=== PATIENT | female | born 1940 | race Caucasian/White ===

== ENCOUNTER 2017-11-13 16:51 | Inpatient (IN) | payer BC, MEDICARE ==
[2017-11-13] MEDS ORDERED: DILTIAZEM DRIP BOLUS FROM BAG 1 MG SOLN IV ONE (17:04)
[2017-11-13] MEDS ORDERED: SODIUM CHLORIDE 0.9% 1,000 ML IV STA ×2 (17:04)
--- NOTE | 2017-11-13 17:14 | ED ---
General Adult HPI - General Chief complaint: Syncope Stated complaint: SYNCOPE Time Seen by Provider: 11/13/17 16:55 Source: patient, EMS, RN notes reviewed, old records reviewed Mode of arrival: EMS Limitations: no limitations - History of Present Illness Initial comments: This is a 68-year-old female the ER for evasive syncopal event weakness. Not feeling well. Patient states he feels like her heart is racing shortness of breath. Patient is a poor historian denies history of heart disease. MD Complaint: A she is - Related Data Home Medications Medication Instructions Recorded Confirmed Aspirin EC [Ecotrin Low Dose] 81 mg PO DAILY 11/13/17 11/13/17 Biotin 5 mg PO DAILY 11/13/17 11/13/17 Cholecalciferol [Vitamin D3] 5,000 unit PO DAILY 11/13/17 11/13/17 Citalopram Hydrobromide [CeleXA] 20 mg PO DAILY 11/13/17 11/13/17 Cyanocobalamin (Vitamin B-12) 1,000 mcg PO DAILY 11/13/17 11/13/17 [Vitamin B-12] Donepezil HCl [Aricept] 10 mg PO BID 11/13/17 11/13/17 Fluticasone Nasal [place] [Flonase 1 spray EA NOSTRIL DAILY 11/13/17 11/13/17 Nasal [place]] Ginkgo Biloba [place] Extract [Ginkgo] 120 mg PO DAILY 11/13/17 11/13/17 Losartan Potassium 100 mg PO DAILY 11/13/17 11/13/17 Memantine [Namenda] 10 mg PO BID 11/13/17 11/13/17 Puritan's Pride Es [place]-3 Fish 1 tab PO DAILY 11/13/17 11/13/17 Oil 1500/450mg amLODIPine [Norvasc] 5 mg PO DAILY 11/13/17 11/13/17 Allergies Allergy/AdvReac Type Severity Reaction Status Date / Time No Known Allergies Allergy Verified 11/13/17 18:25 Review of Systems ROS Statement: Those systems with pertinent positive or pertinent negative responses have been documented in the HPI. ROS Other: All systems not noted in ROS Statement are negative. Past Medical History Past Medical History: Dementia History of Any Multi-Drug Resistant Organisms: None Reported Past Surgical History: No Surgical Hx Reported Past Psychological History: No Psychological Hx Reported Smoking Status: Current some day smoker Past Alcohol Use History: None Reported General Exam Limitations: no limitations General appearance: alert, in no apparent distress, anxious Head exam: Present: atraumatic, normocephalic, normal inspection Eye exam: Present: normal appearance, PERRL, EOMI. Absent: scleral icterus, conjunctival injection, periorbital swelling ENT exam: Present: normal exam, mucous membranes moist Neck exam: Present: normal inspection. Absent: tenderness, meningismus, lymphadenopathy Respiratory exam: Present: normal lung sounds bilaterally. Absent: respiratory distress, wheezes, rales, rhonchi, stridor Cardiovascular Exam: Present: tachycardia, irregular rhythm, normal heart sounds. Absent: systolic murmur, diastolic murmur, rubs, gallop, clicks GI/Abdominal exam: Present: soft, normal bowel sounds. Absent: distended, tenderness, guarding, rebound, rigid Extremities exam: Present: normal inspection, full ROM, normal capillary refill. Absent: tenderness, pedal edema, joint swelling, calf tenderness Back exam: Present: normal inspection Neurological exam: Present: alert, oriented X3, CN II-XII intact Psychiatric exam: Present: normal affect, normal mood Skin exam: Present: warm, dry, intact, normal color. Absent: rash Course Vital Signs 11/13/17 11/13/17 16:54 17:56 Temperature 99.0 F Pulse Rate 137 H 116 H Respiratory 20 18 Rate Blood Pressure 115/56 125/72 O2 Sat by Pulse 98 93 L Oximetry - Reevaluation(s) Reevaluation #1: 11/13/17 18:49 Patient has and denies any chest pain. Patient's heart rate is much improved with rate control, no symptoms or signs of syncope here in the ER EKG Findings - EKG Comments: EKG Findings:: EKG shows A. fib with RVR rate of 140, QRS 80, QTC 494 - EKG Results: EKG: interpreted by LEATHA Medical Decision Making - Medical Decision Making 76 female the ER for evaluation positive A. fib with RVR, positive and STEMI, patient to be admitted for evaluation by cardiology, anticoagulation and heart rate control - Lab Data Result diagrams: 11/13/17 16:58 11/13/17 16:58 Lab Results 11/13/17 11/13/17 11/13/17 Range/Units 16:58 16:58 16:58 WBC 11.0 H (3.8-10.6) k/uL RBC 4.23 (3.80-5.40) m/uL Hgb 12.5 (11.4-16.0) gm/dL Hct 38.8 (34.0-46.0) % MCV 91.7 (80.0-100.0) fL MCH 29.6 (25.0-35.0) pg MCHC 32.2 (31.0-37.0) g/dL RDW 14.1 (11.5-15.5) % Plt Count 147 L (150-450) k/uL Neutrophils % 85 % Lymphocytes % 6 % Monocytes % 7 % Eosinophils % 0 % Basophils % 0 % Neutrophils # 9.3 H (1.3-7.7) k/uL Lymphocytes # 0.6 L (1.0-4.8) k/uL Monocytes # 0.7 (0-1.0) k/uL Eosinophils # 0.0 (0-0.7) k/uL Basophils # 0.0 (0-0.2) k/uL PT (9.0-12.0) sec INR (<1.2) APTT (22.0-30.0) sec Sodium 136 L (137-145) mmol/L Potassium 3.8 (3.5-5.1) mmol/L Chloride 103 (98-107) mmol/L Carbon Dioxide 22 (22-30) mmol/L Anion Gap 11 mmol/L BUN 35 H (7-17) mg/dL Creatinine 1.54 H (0.52-1.04) mg/dL Est GFR (CKD-EPI)AfAm 37 (>60 ml/min/1.73 sqM) Est GFR (CKD-EPI)NonAf 32 (>60 ml/min/1.73 sqM) Glucose 114 H (74-99) mg/dL Calcium 8.6 (8.4-10.2) mg/dL Phosphorus 4.7 H (2.5-4.5) mg/dL Magnesium 1.9 (1.6-2.3) mg/dL Total Bilirubin 0.5 (0.2-1.3) mg/dL AST 32 (14-36) U/L ALT 30 (9-52) U/L Alkaline Phosphatase 61 (38-126) U/L Total Creatine Kinase 260 H (30-135) U/L CK-MB (CK-2) 3.9 H* (0.0-2.4) ng/mL CK-MB (CK-2) Rel Index 1.5 Troponin I 0.197 H* (0.000-0.034) ng/mL Total Protein 5.8 L (6.3-8.2) g/dL Albumin 3.4 L (3.5-5.0) g/dL TSH 1.320 (0.465-4.680) mIU/L 11/13/17 Range/Units 16:58 WBC (3.8-10.6) k/uL RBC (3.80-5.40) m/uL Hgb (11.4-16.0) gm/dL Hct (34.0-46.0) % MCV (80.0-100.0) fL MCH (25.0-35.0) pg MCHC (31.0-37.0) g/dL RDW (11.5-15.5) % Plt Count (150-450) k/uL Neutrophils % % Lymphocytes % % Monocytes % % Eosinophils % % Basophils % % Neutrophils # (1.3-7.7) k/uL Lymphocytes # (1.0-4.8) k/uL Monocytes # (0-1.0) k/uL Eosinophils # (0-0.7) k/uL Basophils # (0-0.2) k/uL PT 10.5 (9.0-12.0) sec INR 1.1 (<1.2) APTT 23.6 (22.0-30.0) sec Sodium (137-145) mmol/L Potassium (3.5-5.1) mmol/L Chloride (98-107) mmol/L Carbon Dioxide (22-30) mmol/L Anion Gap mmol/L BUN (7-17) mg/dL Creatinine (0.52-1.04) mg/dL Est GFR (CKD-EPI)AfAm (>60 ml/min/1.73 sqM) Est GFR (CKD-EPI)NonAf (>60 ml/min/1.73 sqM) Glucose (74-99) mg/dL Calcium (8.4-10.2) mg/dL Phosphorus (2.5-4.5) mg/dL Magnesium (1.6-2.3) mg/dL Total Bilirubin (0.2-1.3) mg/dL AST (14-36) U/L ALT (9-52) U/L Alkaline Phosphatase (38-126) U/L Total Creatine Kinase (30-135) U/L CK-MB (CK-2) (0.0-2.4) ng/mL CK-MB (CK-2) Rel Index Troponin I (0.000-0.034) ng/mL Total Protein (6.3-8.2) g/dL Albumin (3.5-5.0) g/dL TSH (0.465-4.680) mIU/L - Radiology Data Radiology results: report reviewed (Chest x-rays negative), image reviewed Critical Care Time Critical Care Time: Yes Total Critical Care Time: 31 Disposition Clinical Impression: Atrial fibrillation with RVR, NSTEMI (non-ST elevated myocardial infarction), Near syncope Disposition: ADMITTED IP TO THIS HOSP Condition: Serious Is patient prescribed a controlled substance at d/c from ED?: No Referrals: Eliot Teresa DO [Primary Care Provider] - 1-2 days
[2017-11-13] MEDS: DILTIAZEM 50 MG in SODIUM CHLORIDE 0.9% 40 ML IV SCH (17:28)
[2017-11-13 17:44] LABS: Basophils % (A) 0 %; Eosinophils % (A) 0 %; HCT 38.8 % (34.0-46.0); HGB 12.5 gm/dL (11.4-16.0); Lymphocytes # (A) 0.6 k/uL (1.0-4.8); Lymphocytes % (A) 6 %; MCH 29.6 pg (25.0-35.0); MCHC 32.2 g/dL (31.0-37.0); MCV 91.7 fL (80.0-100.0); Monocytes # (A) 0.7 k/uL (0-1.0); Monocytes % (A) 7 %; Neutrophils # (A) 9.3 k/uL (1.3-7.7); Neutrophils % (A) 85 %; Platelet Count 147 k/uL (150-450); RBC 4.23 m/uL (3.80-5.40); RDW 14.1 % (11.5-15.5)
[2017-11-13 17:48] LABS: INR 1.1 (<1.2); Partial Thromboplastin Time 23.6 sec (22.0-30.0); Prothrombin Time 10.5 sec (9.0-12.0)
[2017-11-13 17:55] LABS: Albumin 3.4 g/dL (3.5-5.0); Calcium 8.6 mg/dL (8.4-10.2); Magnesium 1.9 mg/dL (1.6-2.3); Phosphorus 4.7 mg/dL (2.5-4.5); Potassium 3.8 mmol/L (3.5-5.1); Total Bilirubin 0.5 mg/dL (0.2-1.3); Total Protein 5.8 g/dL (6.3-8.2)
[2017-11-13 18:11] LABS: Creatine Kinase MB 3.9 ng/mL (0.0-2.4); Troponin I 0.197 ng/mL (0.000-0.034)
--- NOTE | 2017-11-13 18:32 | XR ---
EXAMINATION TYPE: XR chest 2V DATE OF EXAM: 11/13/2017 COMPARISON: None INDICATION: Weakness TECHNIQUE: Frontal and lateral views of the chest are obtained. FINDINGS: The heart size is normal. The pulmonary vasculature is prominent. The lungs are clear. There is hyperinflation and increased retrosternal airspace and flattening the diaphragms. Correlate for COPD. IMPRESSION: 1. Correlate for volume overload. 2. COPD
[2017-11-13] MEDS ORDERED: HEPARIN SODIUM,PORCINE 5,000 UNIT/ML 1 ML VIAL IV ONE (18:46)
[2017-11-13] MEDS ORDERED: ASPIRIN 81 MG PO STA (18:46)
[2017-11-13] MEDS ORDERED: NITROGLYCERIN SL TABS 0.4 MG TAB SUBLINGUAL PRN (18:46)
[2017-11-13] MEDS ORDERED: HEPARIN SODIUM,PORCINE 5,000 UNIT/ML 1 ML VIAL IV PRN (18:46)
[2017-11-13] MEDS ORDERED: HEPARIN SOD,PORK IN 0.45% NACL 25,000 UNIT in 0.45% NACL 1 500ML.BAG IV SCH (19:00)
[2017-11-13] MEDS: METOPROLOL TARTRATE 50 MG TAB PO SCH (22:19)
[2017-11-13 23:43] LABS: Troponin I 0.253 ng/mL (0.000-0.034)
[2017-11-14 05:40] LABS: Mean Platelet Volume 8.3; Platelet Count 151 k/uL (150-450)
[2017-11-14 05:48] LABS: Cholesterol 129 mg/dL (<200); HDL Cholesterol 51 mg/dL (40-60); LDL Cholesterol,Calculated 55 mg/dL (0-99); Triglycerides 115 mg/dL (<150)
[2017-11-14 06:21] LABS: Creatine Kinase MB 3.4 ng/mL (0.0-2.4); Troponin I 0.231 ng/mL (0.000-0.034)
[2017-11-14] MEDS: DILTIAZEM 50 MG in SODIUM CHLORIDE 0.9% 40 ML IV SCH (06:32)
[2017-11-14] MEDS: SODIUM CHLORIDE 0.9% 1,000 ML IV SCH ×2 (06:32→15:51)
[2017-11-14] MEDS: ATORVASTATIN 80 MG TAB PO SCH (08:47)
[2017-11-14] MEDS: METOPROLOL TARTRATE 50 MG TAB PO SCH (08:49)
[2017-11-14] MEDS ORDERED: ASPIRIN 325 MG TAB PO SCH (09:00)
--- NOTE | 2017-11-14 09:37 | P.CRDCN ---
History of Present Illness Consult date: 11/14/17 Requesting physician: Christine Mari Consult reason: atrial fibrillation Chief complaint: Palpitations, questionable syncope History of present illness: This is a 68-year-old female, most of the history was obtained from the medical record as the patient has dementia and is unable to give an accurate history. She is unsure exactly why she came to the hospital, she denies passing out at home or recalling that she passed out, denies any palpitations, chest discomfort, dizziness or lightheadedness. She does state that she's had an occasional cough, and she also admits to smoking. Patient's home medications include Norvasc, Namenda, losartan, ginkgo, Flonase, Aricept, Celexa, and a baby aspirin. Chest x-ray suggests possible volume overload and COPD. EKG on arrival showed atrial fibrillation with a rapid ventricular response with nonspecific ST-T wave changes. She continues to be in atrial fibrillation this morning, on a Cardizem drip, and the 80s. Let pressure on arrival 116/56, heart rate in the 130s on admission, 98% on room air, low-grade temperature of 99. Let pressure this morning 106/68 with a heart rate in the 80s, 90% on room air. White blood cell count 11.0, hemoglobin 12.5, platelet count of 151. Sodium 136, potassium 3.8, BUN 35, creatinine 1.4. Magnesium 1.9. CK 260, 228, 175. MB 0.19, 0.25, 0.23. Troponin 0.19, 0.25, 0.23. TSH 1.3. Patient is currently receiving IV fluids at 100 mL per hour. Past Medical History Past Medical History: CVA/TIA, Dementia, Hypertension Additional Past Medical History / Comment(s): subclavian steal syndrome, new onset afib (11/13/17) History of Any Multi-Drug Resistant Organisms: None Reported Past Surgical History: No Surgical Hx Reported Past Anesthesia/Blood Transfusion Reactions: No Reported Reaction Past Psychological History: No Psychological Hx Reported Smoking Status: Current some day smoker Past Alcohol Use History: None Reported - Past Family History Mother Family Medical History: Congestive Heart Failure (CHF) Brother(s) Family Medical History: Myocardial Infarction ([place]) Additional Family Medical History / Comment(s): [place] - 36years old quadruple bypass, other brother age 42. Medications and Allergies Home Medications Medication Instructions Recorded Confirmed Type Aspirin EC [Ecotrin Low Dose] 81 mg PO DAILY 11/13/17 11/13/17 History Biotin 5 mg PO DAILY 11/13/17 11/13/17 History Cholecalciferol [Vitamin D3] 5,000 unit PO DAILY 11/13/17 11/13/17 History Citalopram Hydrobromide [CeleXA] 20 mg PO DAILY 11/13/17 11/13/17 History Cyanocobalamin (Vitamin B-12) 1,000 mcg PO DAILY 11/13/17 11/13/17 History [Vitamin B-12] Donepezil HCl [Aricept] 10 mg PO BID 11/13/17 11/13/17 History Fluticasone Nasal [place] [Flonase 1 spray EA NOSTRIL DAILY 11/13/17 11/13/17 History Nasal [place]] Ginkgo Biloba [place] Extract [Ginkgo] 120 mg PO DAILY 11/13/17 11/13/17 History Losartan Potassium 100 mg PO DAILY 11/13/17 11/13/17 History Memantine [Namenda] 10 mg PO BID 11/13/17 11/13/17 History Pur[employer] Pride Es [place]-3 Fish 1 tab PO DAILY 11/13/17 11/13/17 History Oil 1500/450mg amLODIPine [Norvasc] 5 mg PO DAILY 11/13/17 11/13/17 History Allergies Allergy/AdvReac Type Severity Reaction Status Date / Time No Known Allergies Allergy Verified 11/13/17 18:25 Physical Exam Vitals: Vital Signs Temp Pulse Pulse Resp BP BP Pulse Ox 11/14/17 04:00 85 16 107/68 90 L 11/14/17 00:00 92 16 102/50 92 L 11/13/17 20:30 97.4 F L 110 H 16 107/58 96 11/13/17 20:18 98.2 F 105 H 18 102/57 92 L 11/13/17 19:00 103 H 19 112/59 99 11/13/17 17:56 116 H 18 125/72 93 L 11/13/17 16:54 99.0 F 137 H 20 115/56 98 Intake and Output 11/13/17 11/14/1718 22:59 06:59 14:59 Intake Total 200 50.000 99.901 Balance 200 50.000 99.901 Intake: Intake, IV Titration 50.000 99.901 Amount Diltiazem 50 mg In Sodium 50.000 Chloride 0.9% 40 ml @ 5 MG/HR 5 mls/hr IV .Q10H LINO Rx#:[id number] Heparin Sod,Pork in 0.45% 99.901 NaCl 25,000 unit In 0.45 % NaCl 1 500ml.bag @ 12 UNITS/KG/HR 12.41 mls/hr IV .Q24H LINO Rx#: [id number] Oral 200 Other: Voiding Method Toilet # Voids 1 2 # Bowel Movements 1 4 Weight 50.6 kg 50.6 kg PHYSICAL EXAMINATION: GENERAL: 76-year-old female in no acute distress at the time of my examination HEENT: Head is atraumatic, normocephalic. Pupils equal, round. Sclera anicteric. Conjunctiva are clear. Mucous membranes of the mouth are moist. Neck is supple. There is no elevated jugular venous pressure. No carotid bruit is heard. HEART EXAMINATION: Heart S1 and S2 irregularly irregular CHEST EXAMINATION: Lungs reveal fine wheezing with decreased air exchange throughout ABDOMEN: Soft, nontender. Bowel sounds are heard. No organomegaly noted. EXTREMITIES: 2+ peripheral pulses with no evidence of peripheral edema and no calf tenderness noted. NEUROLOGIC patient is awake, alert and oriented X1. . Results 11/14/17 05:23 11/13/17 16:58 Cardiac Enzymes 11/13/17 11/13/17 11/13/17 Range/Units 16:58 16:58 22:30 AST 32 (14-36) U/L CK-MB (CK-2) 3.9 H* 5.0 H* (0.0-2.4) ng/mL Troponin I 0.197 H* 0.253 H* (0.000-0.034) ng/mL 11/14/17 Range/Units 05:23 AST (14-36) U/L CK-MB (CK-2) 3.4 H* (0.0-2.4) ng/mL Troponin I 0.231 H* (0.000-0.034) ng/mL Coagulation 11/13/17 11/14/17 Range/Units 16:58 05:23 PT 10.5 (9.0-12.0) sec APTT 23.6 27.0 (22.0-30.0) sec Lipids 11/14/17 Range/Units 05:23 Triglycerides 115 (<150) mg/dL Cholesterol 129 (<200) mg/dL HDL Cholesterol 51 (40-60) mg/dL CBC 11/13/17 11/14/17 Range/Units 16:58 05:23 WBC 11.0 H (3.8-10.6) k/uL RBC 4.23 (3.80-5.40) m/uL Hgb 12.5 (11.4-16.0) gm/dL Hct 38.8 (34.0-46.0) % Plt Count 147 L 151 (150-450) k/uL Comprehensive Metabolic Panel 11/13/17 Range/Units 16:58 Sodium 136 L (137-145) mmol/L Potassium 3.8 (3.5-5.1) mmol/L Chloride 103 (98-107) mmol/L Carbon Dioxide 22 (22-30) mmol/L BUN 35 H (7-17) mg/dL Creatinine 1.54 H (0.52-1.04) mg/dL Glucose 114 H (74-99) mg/dL Calcium 8.6 (8.4-10.2) mg/dL AST 32 (14-36) U/L ALT 30 (9-52) U/L Alkaline Phosphatase 61 (38-126) U/L Total Protein 5.8 L (6.3-8.2) g/dL Albumin 3.4 L (3.5-5.0) g/dL Current Medications Generic Name Dose Route Start Last Admin Trade Name Freq PRN Reason Stop Dose Admin Aspirin 325 mg 11/14/17 09:00 11/14/17 08:47 Aspirin PO 325 mg DAILY LINO Administration Atorvastatin Calcium 80 mg 11/14/17 09:00 11/14/17 08:47 Lipitor PO 80 mg DAILY LINO Administration Heparin Sodium (Porcine) 0 unit 11/13/17 18:46 11/14/17 07:42 Heparin IV 2,500 unit Q6HR PRN Administration Low PTT Protocol Diltiazem HCl 50 mg/ Sodium 50 mls @ 5 mls/hr 11/13/17 17:15 11/14/17 06:32 Chloride IV 2.5 mg/hr .Q10H LINO 2.5 mls/hr Administration 5 MG/HR Heparin Sodium/Sodium Chloride 500 mls @ 12.41 mls/hr 11/13/17 19:00 07:17 25,000 unit/ Sodium Chloride IV 15 units/kg/hr .Q24H LINO 15.51 mls/hr Titration Protocol 12 UNITS/KG/HR Sodium Chloride 1,000 mls @ 100 mls/hr 11/13/17 19:00 11/14/17 06:32 Saline 0.9% IV Not Given .Q10H LINO Metoprolol Tartrate 50 mg 11/13/17 21:00 11/14/17 08:49 Lopressor PO 50 mg BID LINO Administration Nitroglycerin 0.4 mg 11/13/17 18:46 Nitrostat SUBLINGUAL Q5M PRN Chest Pain Intake and Output 11/13/17 11/14/17 11/14/17 22:59 06:59 14:59 Intake Total 200 50.000 99.901 Balance 200 50.000 99.901 Intake: Intake, IV Titration 50.000 99.901 Amount Diltiazem 50 mg In Sodium 50.000 Chloride 0.9% 40 ml @ 5 MG/HR 5 mls/hr IV .Q10H LINO Rx#:[id number] Heparin Sod,Pork in 0.45% 99.901 NaCl 25,000 unit In 0.45 % NaCl 1 500ml.bag @ 12 UNITS/KG/HR 12.41 mls/hr IV .Q24H LINO Rx#: [id number] Oral 200 Other: Voiding Method Toilet # Voids 1 2 # Bowel Movements 1 4 Weight 50.6 kg 50.6 kg 11/14/17 05:23 11/13/17 16:58 EKG Interpretations (text) Initial EKG shows atrial fibrillation with a rapid ventricular response. Assessment and Plan Plan: Assessment and plan #1 atrial fibrillation with rapid ventricular response, appears to be a new onset for the patient. She is currently on IV heparin. IV Cardizem. #2 questionable syncopal episode. #3 nicotine dependence #4 hypertension #5 dementia #6 mild renal insufficiency, likely secondary to dehydration. Creatinine 1.5 #7 abnormal CK-MB and troponins, could be secondary to atrial fibrillation with rapid ventricular response, supply and demand mismatch. Plan We will obtain an echocardiogram with Doppler study. TSH level is normal. We will continue to hydrate the patient. Decrease aspirin 81 mg daily. Check orthostatic blood pressure and heart rate every shift. Obtain a d-dimer. Discontinue IV Cardizem and start the patient on a beta mario. We'll also discontinue the IV heparin and start the patient on Eliquis 2 half milligrams one tablet by mouth twice a day. This will be discussed with her family as well. Further recommendations to follow. DNP note has been reviewed, I agree with a documented findings and plan of care. Patient was seen and examined.
[2017-11-14] MEDS ORDERED: IPRATROPIUM-ALBUTEROL 3 ML NEB INHALATION PRN (10:02)
[2017-11-14] MEDS ORDERED: LOPERAMIDE 2 MG CAP PO PRN (10:03)
[2017-11-14] MEDS: APIXABAN 2.5 MG TABLET PO SCH ×2 (11:20→20:47)
[2017-11-14 11:46] LABS: Glucose,Whole Blood 106 mg/dL (75-99)
[2017-11-14] MEDS: IPRATROPIUM-ALBUTEROL 3 ML NEB INHALATION SCH ×3 (12:01→20:08)
--- NOTE | 2017-11-14 12:13 | P.HPIM ---
History of Present Illness 76-year-old female with a history of dementia has been having diarrhea was found by the family members at her home passed out in the stool. Patient lives by herself. Patient appears to have diarrhea patient cannot give me a clear history how long she has diarrhea patient baseline creatinine is within normal limits which has gone up quite a bit patient appears to be volume depleted leading to atrial fibrillation and syncopal episode. Patient's C. diff is negative patient will be started on Imodium for her diarrhea for some provided treatment patient to IV fluids will be continued at 100 mL per hour in spite of her elevated BNP and chest x-ray findings of possible volume overload my review of the chest x-ray did appear slightly patient appears to have some chronic interstitial changes rather than volume overload. We'll closely monitor. Echocardiogram will be obtained. Patient's previous echocardiogram is essentially within normal limits. Patient was started on diltiazem which will be continued patient will be hydrated. Patient is hypotensive with elevated creatinine of 1.54 her baseline creatinine is around 0.7. Patient appears to have advanced dementia, PT and OT will be consulted probably she can't leave her alone by herself anymore. Patient is wheezing on exam may have COPD history. Patient will be started on inhaled steroids and albuterol ipratropium. When asked patient's face she smokes on and off. Review of Systems Unable to obtain much of other systems, rest of the review of systems as mentioned above. Past Medical History Past Medical History: CVA/TIA, Dementia, Hypertension Additional Past Medical History / Comment(s): subclavian steal syndrome, new onset afib (11/13/17) History of Any Multi-Drug Resistant Organisms: None Reported Past Surgical History: No Surgical Hx Reported Past Anesthesia/Blood Transfusion Reactions: No Reported Reaction Past Psychological History: No Psychological Hx Reported Smoking Status: Current some day smoker Past Alcohol Use History: None Reported - Past Family History Mother Family Medical History: Congestive Heart Failure (CHF) Brother(s) Family Medical History: Myocardial Infarction ([place]) Additional Family Medical History / Comment(s): [place] - 36years old quadruple bypass, other brother age 42. Medications and Allergies Home Medications Medication Instructions Recorded Confirmed Type Aspirin EC [Ecotrin Low Dose] 81 mg PO DAILY 11/13/17 11/13/17 History Biotin 5 mg PO DAILY 11/13/17 11/13/17 History Cholecalciferol [Vitamin D3] 5,000 unit PO DAILY 11/13/17 11/13/17 History Citalopram Hydrobromide [CeleXA] 20 mg PO DAILY 11/13/17 11/13/17 History Cyanocobalamin (Vitamin B-12) 1,000 mcg PO DAILY 11/13/17 11/13/17 History [Vitamin B-12] Donepezil HCl [Aricept] 10 mg PO BID 11/13/17 11/13/17 History Fluticasone Nasal [place] [Flonase 1 spray EA NOSTRIL DAILY 11/13/17 11/13/17 History Nasal [place]] Ginkgo Biloba [place] Extract [Ginkgo] 120 mg PO DAILY 11/13/17 11/13/17 History Losartan Potassium 100 mg PO DAILY 11/13/17 11/13/17 History Memantine [Namenda] 10 mg PO BID 11/13/17 11/13/17 History [employer] Es [place]-3 Fish 1 tab PO DAILY 11/13/17 11/13/17 History Oil 1500/450mg amLODIPine [Norvasc] 5 mg PO DAILY 11/13/17 11/13/17 History Allergies Allergy/AdvReac Type Severity Reaction Status Date / Time No Known Allergies Allergy Verified 11/13/17 18:25 Physical Exam Vitals: Vital Signs Temp Pulse Pulse Resp BP BP BP 11/14/17 12:04 88 11/14/17 11:58 96.9 F L 86 16 87/58 89/58 11/14/17 08:00 98.5 F 97 18 11/14/17 04:00 85 16 11/14/17 00:00 92 16 11/13/17 20:30 97.4 F L 110 H 16 107/58 11/13/17 20:18 98.2 F 105 H 18 11/13/17 19:00 103 H 19 112/59 11/13/17 17:56 116 H 18 125/72 11/13/17 16:54 99.0 F 137 H 20 115/56 BP Pulse Ox 11/14/17 12:04 11/14/17 11:58 95/56 90 L 11/14/17 08:00 100/67 90 L 11/14/17 04:00 107/68 90 L 11/14/17 00:00 102/50 92 L 11/13/17 20:30 96 11/13/17 20:18 102/57 92 L 11/13/17 19:00 99 11/13/17 17:56 93 L 11/13/17 16:54 98 Intake and Output 11/13/17 11/14/17 11/14/17 22:59 06:59 14:59 Intake Total 200 50.000 99.901 Balance 200 50.000 99.901 Intake: Intake, IV Titration 50.000 99.901 Amount Diltiazem 50 mg In Sodium 50.000 Chloride 0.9% 40 ml @ 5 MG/HR 5 mls/hr IV .Q10H [facility] Rx#:[id number] Heparin Sod,Pork in 0.45% 99.901 NaCl 25,000 unit In 0.45 % NaCl 1 500ml.bag @ 12 UNITS/KG/HR 12.41 mls/hr IV .Q24H [facility]O Rx#: [id number] Oral 200 Other: Voiding Method Toilet # Voids 1 2 1 # Bowel Movements 1 4 0 Weight 50.6 kg 50.6 kg PHYSICAL EXAMINATION: GENERAL: The patient is alert and oriented x3, not in any acute distress. Thin built HEENT: Pupils are round and equally reacting to light. EOMI. No scleral icterus. No conjunctival pallor. Normocephalic, atraumatic. No pharyngeal erythema. No thyromegaly. CARDIOVASCULAR: S1 and S2 present. No murmurs, rubs, or gallops. Tachycardic irregularly irregular rhythm PULMONARY: Decreased air entry with expiratory wheezing. ABDOMEN: Soft, nontender, nondistended, normoactive bowel sounds. No palpable organomegaly. MUSCULOSKELETAL: No joint swelling or deformity. EXTREMITIES: No cyanosis, clubbing, or pedal edema. NEUROLOGICAL: Gross neurological examination did not reveal any focal deficits. SKIN: No rashes. Results CBC & Chem 7: 11/14/17 05:23 11/13/17 16:58 Labs: Abnormal Lab Results - Last 24 Hours (Table) 11/13/17 11/13/17 11/13/17 Range/Units 16:58 16:58 16:58 WBC 11.0 H (3.8-10.6) k/uL Plt Count 147 L (150-450) k/uL Neutrophils # 9.3 H (1.3-7.7) k/uL Lymphocytes # 0.6 L (1.0-4.8) k/uL D-Dimer (<0.60) mg/L FEU Sodium 136 L (137-145) mmol/L BUN 35 H (7-17) mg/dL Creatinine 1.54 H (0.52-1.04) mg/dL Glucose 114 H (74-99) mg/dL POC Glucose (mg/dL) (75-99) mg/dL Phosphorus 4.7 H (2.5-4.5) mg/dL Total Creatine Kinase 260 H (30-135) U/L CK-MB (CK-2) 3.9 H* (0.0-2.4) ng/mL Troponin I 0.197 H* (0.000-0.034) ng/mL Total Protein 5.8 L (6.3-8.2) g/dL Albumin 3.4 L (3.5-5.0) g/dL 11/13/17 11/14/17 11/14/17 Range/Units 22:30 05:23 05:23 WBC (3.8-10.6) k/uL Plt Count (150-450) k/uL Neutrophils # (1.3-7.7) k/uL Lymphocytes # (1.0-4.8) k/uL D-Dimer 3.81 H (<0.60) mg/L FEU Sodium (137-145) mmol/L BUN (7-17) mg/dL Creatinine (0.52-1.04) mg/dL Glucose (74-99) mg/dL POC Glucose (mg/dL) (75-99) mg/dL Phosphorus (2.5-4.5) mg/dL Total Creatine Kinase 228 H 175 H (30-135) U/L CK-MB (CK-2) 5.0 H* 3.4 H* (0.0-2.4) ng/mL Troponin I 0.253 H* 0.231 H* (0.000-0.034) ng/mL Total Protein (6.3-8.2) g/dL Albumin (3.5-5.0) g/dL 08/05/18 Range/Units 11:29 WBC (3.8-10.6) k/uL Plt Count (150-450) k/uL Neutrophils # (1.3-7.7) k/uL Lymphocytes # (1.0-4.8) k/uL D-Dimer (<0.60) mg/L FEU Sodium (137-145) mmol/L BUN (7-17) mg/dL Creatinine (0.52-1.04) mg/dL Glucose (74-99) mg/dL POC Glucose (mg/dL) 106 H (75-99) mg/dL Phosphorus (2.5-4.5) mg/dL Total Creatine Kinase (30-135) U/L CK-MB (CK-2) (0.0-2.4) ng/mL Troponin I (0.000-0.034) ng/mL Total Protein (6.3-8.2) g/dL Albumin (3.5-5.0) g/dL Thrombosis Risk Factor Assmnt - Choose All That Apply Any of the Below Risk Factors Present?: No Other Risk Factors: Yes Each Risk Factor Represents 3 Points: Age 75 years or older Other congenital or acquired thrombophilia - If yes, enter type in comment: No Thrombosis Risk Factor Assessment Total Risk Factor Score: 3 Thrombosis Risk Factor Assessment Level: Moderate Risk Assessment and Plan Plan: -New onset atrial fibrillation: Secondary to probably intravascular volume depletion dehydration plus pitting atrial fibrillation cardiology evaluated the patient continue with Cardizem IV fluids echocardiogram. -Acute renal failure: Secondary to diarrhea intravascularly depletion continue with IV fluids. Basic metabolic profile tomorrow -Mildly elevated troponins probably secondary to A. fib further management as per cardiology patient is on heparin IV at this time. -COPD with minimal exacerbation further management with inhaled steroids and inhaled treatments as mentioned above -Probable advanced dementia: Dementia of Alzheimer's type -Cerebrovascular accident in the past -Hypertension presently hypotensive -Depression: Continue with citalopram
[2017-11-14] MEDS ORDERED: SODIUM CHLORIDE 0.9% 500 ML IV ONE ×2 (15:18→17:35)
[2017-11-14 17:27] LABS: Glucose,Whole Blood 97 mg/dL (75-99)
--- NOTE | 2017-11-14 19:02 | P.CNNES ---
History of Present Illness Consult date: 11/14/17 Requesting physician: Ketan Lo Reason for Consult: Confusion/history of subclavian steal History of Present Illness: Patient is a pleasant 68-year-old female who is being evaluated by the neurology service on 11/14/2017 per the request of Dr. Lo for confusion and history of subclavian steal. Patient does have history of dementia and is on Aricept and Namenda in the home setting. Patient is on low-dose aspirin at home. Patient is a poor historian and information is gathered from staff, chart and family. Patient lives alone but family lives nearby. Reportedly, patient was having diarrhea over the past few days. Patient C diff testing was negative. Family states patient was at home and when they went to check on her she was not her usual self. Patient had soiled herself and they had found other soiling surrounding the home. Patient became confused and when she stood up family states she had a loss of consciousness for about a minute. Daughter- in-law states she saw patient's left eye rolled back and they called 911. On admission, patient was found to be hypotensive and dehydrated. Patient also was found to be in new onset atrial fibrillation. Cardiology's been consulted. Vital signs on admission were temperature 99.0, pulse rate 137, respiratory rate 20, blood pressure 115/56, and O2 saturation 98% on room air. Labs show WBC 11.0, platelet 147, sodium 136, BUN 35, creatinine 1.5, and glucose 114. Patient had elevated troponins on admission. Lipid panel is within normal limits. I understand family is requesting neurology consult due to history of subclavian steal. At the time of my evaluation, patient's resting comfortably in bed and appears to be in no acute distress. Review of Systems REVIEW OF SYSTEMS: Otherwise unremarkable and noncontributory. Past Medical History Past Medical History: CVA/TIA, Dementia, Hypertension Additional Past Medical History / Comment(s): subclavian steal syndrome, new onset afib (11/13/17) History of Any Multi-Drug Resistant Organisms: None Reported Past Surgical History: No Surgical Hx Reported Past Anesthesia/Blood Transfusion Reactions: No Reported Reaction Past Psychological History: No Psychological Hx Reported Smoking Status: Current some day smoker Past Alcohol Use History: None Reported - Past Family History Mother Family Medical History: Congestive Heart Failure (CHF) Brother(s) Family Medical History: Myocardial Infarction ([place]) Additional Family Medical History / Comment(s): [place] - 36years old quadruple bypass, other brother age 42. Medications and Allergies Home Medications Medication Instructions Recorded Confirmed Type Aspirin EC [Ecotrin Low Dose] 81 mg PO DAILY 11/13/17 11/13/17 History Biotin 5 mg PO DAILY 11/13/17 11/13/17 History Cholecalciferol [Vitamin D3] 5,000 unit PO DAILY 11/13/17 11/13/17 History Citalopram Hydrobromide [CeleXA] 20 mg PO DAILY 11/13/17 11/13/17 History Cyanocobalamin (Vitamin B-12) 1,000 mcg PO DAILY 11/13/17 11/13/17 History [Vitamin B-12] Donepezil HCl [Aricept] 10 mg PO BID 11/13/17 11/13/17 History Fluticasone Nasal [place] [Flonase 1 spray EA NOSTRIL DAILY 11/13/17 11/13/17 History Nasal [place]] Ginkgo Biloba [place] Extract [Ginkgo] 120 mg PO DAILY 11/13/17 11/13/17 History Losartan Potassium 100 mg PO DAILY 11/13/17 11/13/17 History Memantine [Namenda] 10 mg PO BID 11/13/17 11/13/17 History [employer] Es [place]-3 Fish 1 tab PO DAILY 11/13/17 11/13/17 History Oil 1500/450mg amLODIPine [Norvasc] 5 mg PO DAILY 11/13/17 11/13/17 History Allergies Allergy/AdvReac Type Severity Reaction Status Date / Time No Known Allergies Allergy Verified 11/13/17 18:25 Physical Examination - Vital Signs Vital Signs: Vital Signs Temp Pulse Pulse Resp BP BP BP 11/14/17 15:55 16 11/14/17 15:51 96.9 F L 97 16 11/14/17 12:13 96 11/14/17 12:04 88 11/14/17 11:58 96.9 F L 86 16 87/58 89/58 11/14/17 08:00 98.5 F 97 18 11/14/17 04:00 85 16 11/14/17 00:00 92 16 11/13/17 20:30 97.4 F L 110 H 16 107/58 11/13/17 20:18 98.2 F 105 H 18 11/13/17 19:00 103 H 19 112/59 BP Pulse Ox 11/14/17 15:55 11/14/17 15:51 95/59 90 L 11/14/17 12:13 11/14/17 12:04 11/14/17 11:58 95/56 90 L 11/14/17 08:00 100/67 90 L 11/14/17 04:00 107/68 90 L 11/14/17 00:00 102/50 92 L 11/13/17 20:30 96 11/13/17 20:18 102/57 92 L 11/13/17 19:00 99 Intake and Output 11/14/17 11/14/17 11/14/17 06:59 14:59 22:59 Intake Total 50.000 219.901 120 Balance 50.000 219.901 120 Intake: Intake, IV Titration 50.000 99.901 Amount Diltiazem 50 mg In Sodium 50.000 Chloride 0.9% 40 ml @ 5 MG/HR 5 mls/hr IV .Q10H [facility] Rx#:[id number] Heparin Sod,Pork in 0.45% 99.901 NaCl 25,000 unit In 0.45 % NaCl 1 500ml.bag @ 12 UNITS/KG/HR 12.41 mls/hr IV .Q24H [facility]O Rx#: [id number] Oral 120 120 Other: Voiding Method Toilet # Voids 2 1 # Bowel Movements 4 0 Weight 50.6 kg PHYSICAL EXAM: GENERAL APPEARANCE: Patient is a well-developed, female who appears to be in no acute distress. HEENT: Normocephalic, atraumatic, no facial asymmetry is seen. Neck is supple with no masses felt. CARDIOVASCULAR: Regular rate and rhythm. ABDOMEN: Nontender, nondistended. EXTREMITIES: Show no edema or clubbing. NEUROLOGICAL EXAM: Patient is awake, alert, and oriented 3. Speech and language are normal. Strength is full in all 4 extremities. Sensory exam to light touch is normal in all 4 extremities. No facial asymmetry is seen on cranial nerve testing. No tremors or seizure-like activity noted. Results - Laboratory Findings CBC and BMP: 11/14/17 05:23 08/04/18 16:58 Abnormal Lab Findings: Abnormal Labs 11/13/17 11/13/17 11/13/17 16:58 16:58 16:58 WBC 11.0 H Plt Count 147 L Neutrophils # 9.3 H Lymphocytes # 0.6 L D-Dimer Sodium 136 L BUN 35 H Creatinine 1.54 H Glucose 114 H POC Glucose (mg/dL) Phosphorus 4.7 H Total Creatine Kinase 260 H CK-MB (CK-2) 3.9 H* Troponin I 0.197 H* Total Protein 5.8 L Albumin 3.4 L 11/13/17 11/14/17 11/14/17 22:30 05:23 05:23 WBC Plt Count Neutrophils # Lymphocytes # D-Dimer 3.81 H Sodium BUN Creatinine Glucose POC Glucose (mg/dL) Phosphorus Total Creatine Kinase 228 H 175 H CK-MB (CK-2) 5.0 H* 3.4 H* Troponin I 0.253 H* 0.231 H* Total Protein Albumin 11/14/17 11:29 WBC Plt Count Neutrophils # Lymphocytes # D-Dimer Sodium BUN Creatinine Glucose POC Glucose (mg/dL) 106 H Phosphorus Total Creatine Kinase CK-MB (CK-2) Troponin I Total Protein Albumin Assessment and Plan Plan: Impression: 1. New-onset atrial fibrillation with RVR 2. Possible syncopal episode 3. Hypertension 4. Dementia 5. Renal insufficiency 6. Abnormal CKMB and troponins 7. History of subclavian steal Recommendation: Patient presented to [facility] with symptoms likely related to new onset atrial fibrillation. Family requested neurology consult due to history of subclavian steal and diagnosis of dementia. Family is concerned that patient is not acting like herself. I explained to family that any stressor on the body can potentiate dementia. Due to questionable episode of syncope, MRI of the brain will be ordered. I will also order an EEG , and serum homocystine level. As for dementia, I would continue Aricept and Namenda. As for diagnosis of subclavian steal, antiplatelet therapy is warranted. Patient was started on Eliquis per cardiology. Continue medical and cardiology management. I will continue to follow with you. Further recommendations following MRI of the brain. Thank you for allowing me to participate in the care of this patient. Feel free to call with any questions or concerns. I performed an examination of the patient and discussed the management with the STEAM PIPE FITTER. I have reviewed the STEAM PIPE FITTER notes and agree with the findings and plan of care.
[2017-11-14] MEDS: SYMBICORT 160-4.5 MCG INHALER INHALATION SCH (20:09)
[2017-11-14] MEDS: METOPROLOL TARTRATE 25 MG TAB PO SCH (20:47)
[2017-11-14 20:52] LABS: Glucose,Whole Blood 97 mg/dL (75-99)
[2017-11-15] MEDS: SODIUM CHLORIDE 0.9% 1,000 ML IV SCH ×2 (03:24→11:27)
[2017-11-15 06:09] LABS: Glucose,Whole Blood 93 mg/dL (75-99)
[2017-11-15 06:41] LABS: HCT 33.5 % (34.0-46.0); MCH 30.2 pg (25.0-35.0); MCHC 32.7 g/dL (31.0-37.0); MCV 92.1 fL (80.0-100.0); Mean Platelet Volume 7.8; Platelet Count 159 k/uL (150-450); RBC 3.64 m/uL (3.80-5.40); RDW 14.1 % (11.5-15.5); WBC 6.4 k/uL (3.8-10.6)
[2017-11-15 06:52] LABS: Calcium 8.1 mg/dL (8.4-10.2); Potassium 3.8 mmol/L (3.5-5.1)
[2017-11-15] MEDS: ATORVASTATIN 80 MG TAB PO SCH (08:25)
[2017-11-15] MEDS: METOPROLOL TARTRATE 25 MG TAB PO SCH ×3 (08:25→19:57)
[2017-11-15] MEDS: APIXABAN 2.5 MG TABLET PO SCH ×2 (08:25→19:57)
[2017-11-15] MEDS: ASPIRIN 81 MG PO SCH (08:25)
[2017-11-15] MEDS: IPRATROPIUM-ALBUTEROL 3 ML NEB INHALATION SCH ×4 (08:45→20:11)
[2017-11-15] MEDS: SYMBICORT 160-4.5 MCG INHALER INHALATION SCH ×3 (08:45→20:23)
[2017-11-15] MEDS ORDERED: DEXTROSE 5% IN WATER 100 ML with AMIODARONE 150 MG IV ONE (09:41)
--- NOTE | 2017-11-15 10:59 | ECHOF ---
Referral Reason:syncope MEASUREMENTS -------- HEIGHT: 160.0 cm WEIGHT: 52.2 kg BP: 125/74 IVSd: 1.7 cm (0.6 - 1.1) LVIDd: 2.1 cm (3.9 - 5.3) LVPWd: 1.6 cm (0.6 - 1.1) IVSs: 1.8 cm LVIDs: 1.3 cm LVPWs: 1.5 cm LAESV Index (A-L): 26.53 ml/m Ao Diam: 3.0 cm (2.0 - 3.7) AV Cusp: 1.1 cm (1.5 - 2.6) LA Diam: 3.2 cm (2.7 - 3.8) AV maxP.39 mmHg AV meanP.82 mmHg RAP: 15.00 mmHg RVSP: 47.40 mmHg FINDINGS -------- Atrial fibrillation. This was a technically good study. The left ventricular size is normal. There is moderate concentric left ventricular hypertrophy. O verall left ventricular systolic function is normal with, an EF between 55 - 60 %. The right ventricle is normal in size and function. The left atrial size is normal. The right atrium is normal in size. Aortic valve is trileaflet and is mildly thickened. There is mild aortic stenosis present. Peak/m ashley gradient across the Aortic Valve is 17.39mmHg / 10.82mmHg. The mitral valve leaflets are mildly thickened. Mild mitral regurgitation is present. Moderate tricuspid regurgitation present. There is mild pulmonary hypertension. The right ventric ular systolic pressure, as measured by Doppler, is 47.40mmHg. Pulmonic valve appears structurally normal. The aortic root size is normal. The inferior vena cava is mildly dilated. The pericardium is normal. CONCLUSIONS -------- 1. Atrial fibrillation. 2. This was a technically good study. 3. The left ventricular size is normal. 4. There is moderate concentric left ventricular hypertrophy. 5. Overall left ventricular systolic function is normal with, an EF between 55 - 60 %. 6. The right ventricle is normal in size and function. 7. The left atrial size is normal. 8. The right atrium is normal in size. 9. Aortic valve is trileaflet and is mildly thickened. 10. There is mild aortic stenosis present. 11. Peak/mean gradient across the Aortic Valve is 17.39mmHg / 10.82mmHg. 12. The mitral valve leaflets are mildly thickened. 13. Mild mitral regurgitation is present. 14. Moderate tricuspid regurgitation present. 15. There is mild pulmonary hypertension. 16. The right ventricular systolic pressure, as measured by Doppler, is 47.40mmHg. 17. Pulmonic valve appears structurally normal. 18. The aortic root size is normal. 19. The inferior vena cava is mildly dilated. 20. The pericardium is normal. AUDIT [employer]ERKS SUPERVISOR: Jennifer Sanon RDCS
[2017-11-15 11:10] VITALS: BMI 20.4
[2017-11-15 11:24] LABS: Glucose,Whole Blood 112 mg/dL (75-99)
[2017-11-15] MEDS: AMIODARONE 450 MG in DEXTROSE 5% IN WATER 250 ML IV SCH ×4 (11:27→19:56)
[2017-11-15] MEDS ORDERED: SODIUM CHLORIDE 0.9% 1,000 ML IV SCH (12:30)
--- NOTE | 2017-11-15 12:31 | P.PN ---
Subjective 76-year-old female with a history of dementia has been having diarrhea was found by the family members at her home passed out in the stool. Patient lives by herself. Patient appears to have diarrhea patient cannot give me a clear history how long she has diarrhea patient baseline creatinine is within normal limits which has gone up quite a bit patient appears to be volume depleted leading to atrial fibrillation and syncopal episode. Patient's C. diff is negative patient will be started on Imodium for her diarrhea for some provided treatment patient to IV fluids will be continued at 100 mL per hour in spite of her elevated BNP and chest x-ray findings of possible volume overload my review of the chest x-ray did appear slightly patient appears to have some chronic interstitial changes rather than volume overload. We'll closely monitor. Echocardiogram will be obtained. Patient's previous echocardiogram is essentially within normal limits. Patient was started on diltiazem which will be continued patient will be hydrated. Patient is hypotensive with elevated creatinine of 1.54 her baseline creatinine is around 0.7. Patient appears to have advanced dementia, PT and OT will be consulted probably she can't leave her alone by herself anymore. Patient is wheezing on exam may have COPD history. Patient will be started on inhaled steroids and albuterol ipratropium. When asked patient's face she smokes on and off. 11/15/2017 Patient is seen and examined by me at bedside, patient looks to me she is alert awake and oriented to time place and person, she knows she is in the hospital and [facility]. She knows this is 2017 but she couldn't remember the dates exactly, and she couldn't remember the name of the president Mr. Cruz. She knows why she is in the hospital for syncope heart arrhythmia and diarrhea and patient states she has loose bowel movements with greenish in color and watery, no abdominal pain or nausea vomiting. Patient could not states for how long to have diarrhea Patient BMP was unremarkable, troponins are mildly elevated, liver enzymes are within normal limits. Natural proBNP 9040, TSH 1.3. CBC was unremarkable except for mild anemia at 11. CXR: COPD. Patient on statin, eliquis, asa, metoprol Objective - Vital Signs Vital signs: Vital Signs Temp 97.7 F 11/15/17 12:00 Pulse 102 H 11/15/17 12:00 Resp 16 11/15/17 12:00 BP 107/56 11/15/17 12:00 Pulse Ox 94 L 11/15/17 12:00 Intake & Output 11/14/17 11/15/17 11/15/17 18:59 06:59 18:59 Intake Total 339.901 980 240 Balance 339.901 980 240 Weight 52.3 kg 52.3 kg Intake: Intake, IV Titration 99.901 900 Amount Heparin Sod,Pork in 0.45% 99.901 NaCl 25,000 unit In 0.45 % NaCl 1 500ml.bag @ 12 UNITS/KG/HR 12.41 mls/hr IV .Q24H [facility]O Rx#: [id number] Sodium Chloride 0.9% 1, 900 000 ml @ 100 mls/hr IV . Q10H LINO Rx#:[id number] Oral 240 80 240 Other: Voiding Method Toilet # Voids 1 1 # Bowel Movements 0 - Exam GENERAL: The patient is alert and oriented x3, not in any acute distress. Thin built HEENT: Pupils are round and equally reacting to light. EOMI. No scleral icterus. No conjunctival pallor. Normocephalic, atraumatic. No pharyngeal erythema. No thyromegaly. CARDIOVASCULAR: S1 and S2 present. No murmurs, rubs, or gallops. Tachycardic irregularly irregular rhythm PULMONARY: Decreased air entry with expiratory wheezing. ABDOMEN: Soft, nontender, nondistended, normoactive bowel sounds. No palpable organomegaly. MUSCULOSKELETAL: No joint swelling or deformity. EXTREMITIES: No cyanosis, clubbing, or pedal edema. NEUROLOGICAL: Gross neurological examination did not reveal any focal deficits. SKIN: No rashes. - Labs CBC & Chem 7: 11/15/17 06:17 11/15/17 06:17 Labs: Abnormal Lab Results - Last 24 Hours (Table) 11/15/17 11/15/17 11/15/17 Range/Units 06:17 06:17 11:21 RBC 3.64 L (3.80-5.40) m/uL Hgb 11.0 L (11.4-16.0) gm/dL Hct 33.5 L (34.0-46.0) % Chloride 113 H (98-107) mmol/L Carbon Dioxide 19 L (22-30) mmol/L BUN 28 H (7-17) mg/dL POC Glucose (mg/dL) 112 H (75-99) mg/dL Calcium 8.1 L (8.4-10.2) mg/dL Assessment and Plan Plan: -New onset atrial fibrillation: cardiology evaluated the patient continue with Cardizem IV fluids echocardiogram., Patient doesn't heparin drip in view of previous stroke, patient might benefit from usp anticoagulation as per cardiology recommendation, patient was started on ELIQUIS 2.5 mg twice a day. EF 55-60%. -Acute renal failure: Secondary to diarrhea intravascularly depletion continue with IV fluids. Basic metabolic profile tomorrow -Diarrhea, C. diff is negative. We'll check stool studies. Continue with IV fluids react sent for stool studies: Stool culture, WBC stool, and ova and parasites in the stool -Dehydration and hypovolemia, blood pressure 107/56, follow-up vitals. Continue with IV fluids -Mildly elevated troponins probably secondary to A. fib further management as per cardiology patient is on heparin IV at this time. -COPD with minimal exacerbation further management with inhaled steroids and inhaled treatments as mentioned above -Syncope, cardiology evaluation is appreciated, mostly related to her dehydration, hypovolemia and new onset A. fib. Neurology evaluation is appreciated, MRI and EEG: Pending -Confusion, Probable related to dementia: Dementia of Alzheimer's type, neurology evaluation is appreciated. MRI and EEG:( as above). However patient is alert and awake and oriented exit 3 -Cerebrovascular accident in the past -Hypertension presently hypotensive -Depression: Continue with citalopram The video prophylaxis: Already on heparin drip GI prophylaxis: Pepcid
[2017-11-15] MEDS: FUROSEMIDE 10 MG/ML 2 ML VIAL IV SCH ×2 (13:35→19:57)
--- NOTE | 2017-11-15 14:47 | P.PN ---
Subjective Progress Note Date: 11/15/17 This is a 68-year-old female, most of the history was obtained from the medical record as the patient has dementia and is unable to give an accurate history. She is unsure exactly why she came to the hospital, she denies passing out at home or recalling that she passed out, denies any palpitations, chest discomfort, dizziness or lightheadedness. She does state that she's had an occasional cough, and she also admits to smoking. Patient's home medications include Norvasc, Namenda, losartan, ginkgo, Flonase, Aricept, Celexa, and a baby aspirin. Chest x-ray suggests possible volume overload and COPD. EKG on arrival showed atrial fibrillation with a rapid ventricular response with nonspecific ST-T wave changes. She continues to be in atrial fibrillation this morning, on a Cardizem drip, and the 80s. Let pressure on arrival 116/56, heart rate in the 130s on admission, 98% on room air, low-grade temperature of 99. Let pressure this morning 106/68 with a heart rate in the 80s, 90% on room air. White blood cell count 11.0, hemoglobin 12.5, platelet count of 151. Sodium 136, potassium 3.8, BUN 35, creatinine 1.4. Magnesium 1.9. CK 260, 228, 175. MB 0.19, 0.25, 0.23. Troponin 0.19, 0.25, 0.23. TSH 1.3. Patient is currently receiving IV fluids at 100 mL per hour. 11/15/2017 Patient seen and examined this morning, breathing overall has improved, she continues to be in atrial fibrillation, her heart rate at the time of my examination of into the 140s. We will start the patient on IV amiodarone today. We'll also give the patient 2 doses of IV Lasix. Blood pressure 108/60 , 94% on 2 L of oxygen. White blood cell count 6.4, hemoglobin 11, platelet count 159. Sodium 138, potassium 3.8, BUN 28, creatinine 0.9. Objective - Vital Signs Vital signs: Vital Signs Temp 97.7 F 11/15/17 12:00 Pulse 116 H 11/15/17 12:25 Resp 16 11/15/17 12:00 BP 107/56 11/15/17 12:00 Pulse Ox 94 L 11/15/17 12:00 Intake & Output 11/14/17 11/15/17 11/15/17 18:59 06:59 18:59 Intake Total 339.901 980 720 Balance 339.901 980 720 Weight 52.3 kg 52.3 kg Intake: Intake, IV Titration 99.901 900 Amount Heparin Sod,Pork in 0.45% 99.901 NaCl 25,000 unit In 0.45 % NaCl 1 500ml.bag @ 12 UNITS/KG/HR 12.41 mls/hr IV .Q24H LINO Rx#: [id number] Sodium Chloride 0.9% 1, 900 000 ml @ 20 mls/hr IV . Q24H LINO Rx#:[id number] Oral 240 80 720 Other: Voiding Method Toilet # Voids 1 1 1 # Bowel Movements 0 - Exam PHYSICAL EXAMINATION: GENERAL: 76-year-old female in no acute distress at the time of my examination HEENT: Head is atraumatic, normocephalic. Pupils equal, round. Sclera anicteric. Conjunctiva are clear. Mucous membranes of the mouth are moist. Neck is supple. There is no elevated jugular venous pressure. No carotid bruit is heard. HEART EXAMINATION: Heart S1 and S2 irregularly irregular CHEST EXAMINATION: Lungs reveal fine wheezing with decreased air exchange throughout ABDOMEN: Soft, nontender. Bowel sounds are heard. No organomegaly noted. EXTREMITIES: 2+ peripheral pulses with no evidence of peripheral edema and no calf tenderness noted. NEUROLOGIC patient is awake, alert and oriented X1. . - Labs CBC & Chem 7: 11/15/17 06:17 11/15/17 06:17 Labs: Abnormal Lab Results - Last 24 Hours (Table) 11/15/17 11/15/17 11/15/17 Range/Units 06:17 06:17 11:21 RBC 3.64 L (3.80-5.40) m/uL Hgb 11.0 L (11.4-16.0) gm/dL Hct 33.5 L (34.0-46.0) % Chloride 113 H (98-107) mmol/L Carbon Dioxide 19 L (22-30) mmol/L BUN 28 H (7-17) mg/dL POC Glucose (mg/dL) 112 H (75-99) mg/dL Calcium 8.1 L (8.4-10.2) mg/dL Assessment and Plan Plan: Assessment and plan #1 atrial fibrillation with rapid ventricular response, appears to be a new onset for the patient. . #2 questionable syncopal episode. #3 nicotine dependence #4 hypertension #5 dementia #6 mild renal insufficiency, likely secondary to dehydration. Give #7 abnormal CK-MB and troponins, could be secondary to atrial fibrillation with rapid ventricular response, supply and demand mismatch. Plan TSH level was normal. Echo cardiac gram with Doppler study revealed a normal left ventricular systolic function with moderate tricuspid regurgitation. We' ll start the patient on IV amiodarone today, she is on Eliquis for anticoagulation. We will also increase the dose of beta mario. IV diuretics for 24 hours. DNP note has been reviewed, I agree with a documented findings and plan of care. Patient was seen and examined.
[2017-11-15] MEDS: CITALOPRAM HYDROBROMIDE 20 MG TAB PO SCH (15:10)
[2017-11-15] MEDS: DONEPEZIL 10 MG TAB PO SCH (15:11)
[2017-11-15] MEDS: MEMANTINE 10 MG TAB PO SCH (15:12)
--- NOTE | 2017-11-15 17:06 | P.PN ---
Subjective Progress Note Date: 11/15/17 Patient is a pleasant 68-year-old female who is being followed by the neurology service for confusion and history of subclavian steal. Patient does have a history of dementia and is on Aricept and Namenda in the home setting. Patient came to [facility] with confusion, diarrhea for the last few days, and possible syncopal episode. Patient has been seen by cardiology and was placed on Eliquis for new onset atrial fibrillation. At the time of my evaluation, patient's resting comfortably in bed and appears to be in no acute distress. Family is at the bedside. Objective - Vital Signs Vital signs: Vital Signs Temp 97.7 F 11/15/17 12:00 Pulse 101 H 11/15/17 16:48 Resp 16 11/15/17 12:00 BP 107/56 11/15/17 12:00 Pulse Ox 94 L 11/15/17 12:00 Intake & Output 11/14/17 11/15/17 11/15/17 18:59 06:59 18:59 Intake Total 339.901 980 720 Balance 339.901 980 720 Weight 52.3 kg 52.3 kg Intake: Intake, IV Titration 99.901 900 Amount Heparin Sod,Pork in 0.45% 99.901 NaCl 25,000 unit In 0.45 % NaCl 1 500ml.bag @ 12 UNITS/KG/HR 12.41 mls/hr IV .Q24H LINO Rx#: [id number] Sodium Chloride 0.9% 1, 900 000 ml @ 20 mls/hr IV . Q24H LINO Rx#:[id number] Oral 240 80 720 Other: Voiding Method Toilet # Voids 1 1 1 # Bowel Movements 0 - Exam PHYSICAL EXAM: GENERAL APPEARANCE: Patient is a well-developed, female who appears to be in no acute distress. HEENT: Normocephalic, atraumatic, no facial asymmetry is seen. Neck is supple with no masses felt. CARDIOVASCULAR: Regular rate and rhythm. ABDOMEN: Nontender, nondistended. EXTREMITIES: Show no edema or clubbing. NEUROLOGICAL EXAM: Patient is awake, alert, and oriented 3. Speech and language are normal. Patient does have word finding difficulties. Strength is full in all 4 extremities. Sensory exam to light touch is normal in all 4 extremities. No facial asymmetry seen on cranial nerve testing. No tremors or seizure-like activity noted. - Labs CBC & Chem 7: 11/15/17 06:17 11/15/17 06:17 Labs: Abnormal Lab Results - Last 24 Hours (Table) 11/15/17 11/15/17 11/15/17 Range/Units 06:17 06:17 11:21 RBC 3.64 L (3.80-5.40) m/uL Hgb 11.0 L (11.4-16.0) gm/dL Hct 33.5 L (34.0-46.0) % Chloride 113 H (98-107) mmol/L Carbon Dioxide 19 L (22-30) mmol/L BUN 28 H (7-17) mg/dL POC Glucose (mg/dL) 112 H (75-99) mg/dL Calcium 8.1 L (8.4-10.2) mg/dL Assessment and Plan Plan: Impression: 1. New-onset atrial fibrillation with RVR 2. Possible syncopal episode 3. Hypertension 4. Dementia 5. Renal insufficiency 6. Abnormal CKMB and troponins 7. History of subclavian steal Recommendation: Patient presented to [facility] with symptoms likely related to new onset atrial fibrillation. Family requested neurology consult due to history of subclavian steal and diagnosis of dementia. Family is concerned that patient is not acting like herself. Due to questionable episode of syncope, MRI of the brain will be ordered. I will also order an EEG , and serum homocystine level. As for dementia, I would continue Aricept and Namenda at home dose. As for diagnosis of subclavian steal, antiplatelet therapy is warranted. Patient was started on Eliquis per cardiology. Continue medical and cardiology management. MRI of the brain and EEG have not yet been performed. Please call Dr. Hope with results. Barring any abnormality on the MRI or the EEG, I will continue to follow with you on an as-needed basis. Feel free to call with any questions or concerns. I performed an examination of the patient and discussed the management with the SCALLOP CUTTER. I have reviewed the SCALLOP CUTTER notes and agree with the findings and plan of care.
[2017-11-15] MEDS: metroNIDAZOLE 500 MG TAB PO SCH ×2 (17:50→19:57)
[2017-11-15] MEDS: FAMOTIDINE 20 MG/2 ML VIAL IV SCH (19:57)
[2017-11-15 21:05] LABS: Glucose,Whole Blood 108 mg/dL (75-99)
--- NOTE | 2017-11-15 21:13 | MR ---
EXAMINATION TYPE: MR brain wo con DATE OF EXAM: 11/15/2017 HISTORY: Altered mental status TECHNIQUE: Department multiplanar, multisequence sequences of the brain were acquired. Diffusion weig hted imaging was performed. COMPARISON: 03/04/2016 MRI FINDINGS: There is no restricted diffusion to suggest acute or subacute infarction. No mass or mass e ffect. Most conspicuous on the T2 FLAIR sequence are innumerable T2 hyperintensities throughout the bilatera l loomis radiata and centrum semiovale, nonspecific but usually reflecting small vessel ischemic de la rosa ge quite prominent in degree for a patient in this age group. These are relatively stable when compar ed to the prior MRI. There is no focal encephalomalacia to suggest prior macrovascular infarction. The global atrophy pattern seen on the prior study is unaltered. The mastoid sinus air cells and middle ear cavities and paranasal sinuses are clear. The orbits are u nremarkable. IMPRESSION: NO ACUTE PROCESS.
[2017-11-16] MEDS: AMIODARONE 450 MG in DEXTROSE 5% IN WATER 250 ML IV SCH ×4 (01:47→21:01)
[2017-11-16] MEDS: QUEtiapine 25 MG TAB PO SCH ×2 (01:47→21:07)
[2017-11-16] MEDS: METOPROLOL TARTRATE 25 MG TAB PO SCH ×4 (02:18→21:06)
[2017-11-16 05:56] LABS: Glucose,Whole Blood 96 mg/dL (75-99)
[2017-11-16 07:12] LABS: Mean Platelet Volume 8.4; Platelet Count 158 k/uL (150-450)
[2017-11-16] MEDS: SYMBICORT 160-4.5 MCG INHALER INHALATION SCH ×2 (08:48→20:08)
[2017-11-16] MEDS: IPRATROPIUM-ALBUTEROL 3 ML NEB INHALATION SCH ×4 (08:49→20:08)
[2017-11-16] MEDS: ATORVASTATIN 80 MG TAB PO SCH (09:15)
[2017-11-16] MEDS: CITALOPRAM HYDROBROMIDE 20 MG TAB PO SCH (09:15)
[2017-11-16] MEDS: DONEPEZIL 10 MG TAB PO SCH ×2 (09:15→21:06)
[2017-11-16] MEDS: FAMOTIDINE 20 MG/2 ML VIAL IV SCH (09:15)
[2017-11-16] MEDS: APIXABAN 2.5 MG TABLET PO SCH ×2 (09:15→21:06)
[2017-11-16] MEDS: ASPIRIN 81 MG PO SCH (09:15)
[2017-11-16] MEDS: metroNIDAZOLE 500 MG TAB PO SCH ×3 (09:16→21:07)
[2017-11-16] MEDS: MEMANTINE 10 MG TAB PO SCH ×2 (09:16→21:07)
[2017-11-16] MEDS: FUROSEMIDE 10 MG/ML 2 ML VIAL IV SCH ×2 (09:16→11:34)
[2017-11-16 11:16] LABS: Calcium 8.1 mg/dL (8.4-10.2); Potassium 3.5 mmol/L (3.5-5.1)
[2017-11-16] MEDS: AMIODARONE 200 MG TAB PO SCH ×2 (11:21→21:06)
[2017-11-16 12:05] LABS: Basophils % (A) 0 %; Eosinophils # (A) 0.1 k/uL (0-0.7); Eosinophils % (A) 1 %; HCT 32.9 % (34.0-46.0); HGB 10.9 gm/dL (11.4-16.0); Lymphocytes # (A) 0.9 k/uL (1.0-4.8); Lymphocytes % (A) 15 %; MCH 30.6 pg (25.0-35.0); MCHC 33.2 g/dL (31.0-37.0); Monocytes # (A) 0.6 k/uL (0-1.0); Monocytes % (A) 9 %; Neutrophils # (A) 4.4 k/uL (1.3-7.7); Neutrophils % (A) 73 %; RBC 3.57 m/uL (3.80-5.40); RDW 14.1 % (11.5-15.5); WBC 6.1 k/uL (3.8-10.6)
[2017-11-16 12:21] LABS: Glucose,Whole Blood 94 mg/dL (75-99)
[2017-11-16 12:22] LABS: Mean Platelet Volume 8.4; Platelet Count 158 k/uL (150-450)
--- NOTE | 2017-11-16 14:16 | P.PN ---
Subjective Progress Note Date: 11/16/17 Progress note dictated for Dr. Mari> Interval history:76-year-old female with a history of dementia has been having diarrhea was found by the family members at her home passed out in the stool. Patient lives by herself. Patient appears to have diarrhea patient cannot give me a clear history how long she has diarrhea patient baseline creatinine is within normal limits which has gone up quite a bit patient appears to be volume depleted leading to atrial fibrillation and syncopal episode. Patient's C. diff is negative patient will be started on Imodium for her diarrhea for some provided treatment patient to IV fluids will be continued at 100 mL per hour in spite of her elevated BNP and chest x-ray findings of possible volume overload my review of the chest x-ray did appear slightly patient appears to have some chronic interstitial changes rather than volume overload. We'll closely monitor. Echocardiogram will be obtained. Patient's previous echocardiogram is essentially within normal limits. Patient was started on diltiazem which will be continued patient will be hydrated. Patient is hypotensive with elevated creatinine of 1.54 her baseline creatinine is around 0.7. Patient appears to have advanced dementia, PT and OT will be consulted probably she can' t leave her alone by herself anymore. Patient is wheezing on exam may have COPD history. Patient will be started on inhaled steroids and albuterol ipratropium. When asked patient's face she smokes on and off. 11/15/2017 Patient is seen and examined by me at bedside, patient looks to me she is alert awake and oriented to time place and person, she knows she is in the hospital and [facility]. She knows this is 2017 but she couldn't remember the dates exactly, and she couldn't remember the name of the president Mr. Cruz. She knows why she is in the hospital for syncope heart arrhythmia and diarrhea and patient states she has loose bowel movements with greenish in color and watery, no abdominal pain or nausea vomiting. Patient could not states for how long to have diarrhea Patient BMP was unremarkable, troponins are mildly elevated, liver enzymes are within normal limits. Natural proBNP 9040, TSH 1.3. CBC was unremarkable except for mild anemia at 11. CXR: COPD. Patient on statin, eliquis, asa, metoprol 11/16/2017 maintained on amiodarone drip. Atrial fibrillation better controlled today with heart rates 80s to 90s.Amiodarone drip converted to oral as per cardiology. Anticoagulated on Eliquis. Diuresing on Lasix IV push. Continues on Flagyl, diarrhea improving. Diet intake fluctuates from 0-75%. Renal function significantly improved. Denies nausea vomiting. No abdominal pain. Denies chest pain, palpitations. MRI performed yesterday reporting no acute process, prominent small vessel ischemic change-stable compared to prior MRI. EEG pending. Objective - Vital Signs Vital signs: Vital Signs Temp 98.9 F 11/16/17 09:31 Pulse 107 H 11/16/17 09:31 Resp 16 11/16/17 09:31 BP 112/77 11/16/17 09:31 Pulse Ox 93 L 11/16/17 09:31 Intake & Output 11/15/17 11/16/17 11/16/17 18:59 06:59 18:59 Intake Total 1164.907 442.970 0 Balance 1164.907 442.970 0 Weight 52.3 kg 52.5 kg Intake: Intake, IV Titration 208.907 442.970 Amount Amiodarone 450 mg In 208.907 142.970 Dextrose 5% in Water 250 ml @ 1 MG/MIN 34.53 mls/ hr IV .[id number] LINO Rx#: [id number] Sodium Chloride 0.9% 1, 300 000 ml @ 75 mls/hr IV . [id number] LINO Rx#:[id number] Oral 956 0 Other: Voiding Method Toilet Toilet # Voids 1 0 - Exam GENERAL: The patient is alert and oriented x1, no acute distress. HEENT: Pupils are round and equally reacting to light. EOMI. No scleral icterus. No conjunctival pallor. Normocephalic, atraumatic. No pharyngeal erythema. No thyromegaly. Oral mucosa moist CARDIOVASCULAR: S1 and S2 present. No murmurs, rubs, or gallops. irregularly irregular rhythm PULMONARY: Decreased air entry with expiratory wheezing. ABDOMEN: Soft, nontender, nondistended, normoactive bowel sounds. No palpable organomegaly. MUSCULOSKELETAL: No joint swelling or deformity. EXTREMITIES: No cyanosis, clubbing, or pedal edema. NEUROLOGICAL: Gross neurological examination did not reveal any focal deficits. SKIN: No rashes. - Labs CBC & Chem 7: 11/16/17 06:16 11/16/17 06:16 Labs: Abnormal Lab Results - Last 24 Hours (Table) 11/15/17 11/15/17 Range/Units 11:21 21:00 POC Glucose (mg/dL) 112 H 108 H (75-99) mg/dL Assessment and Plan Assessment: -New onset atrial fibrillation with RVR, EF 55-60%. -Acute renal failure: Secondary to diarrhea intravascularly depletion , improving -Diarrhea, C. diff is negative. -Dehydration and hypovolemia -Mildly elevated troponins probably secondary to A. fib further -COPD with minimal exacerbation -Syncope, cardiology evaluation is appreciated, mostly related to her dehydration, hypovolemia and new onset A. fib. MRI nonacute -Confusion, Probable related to dementia: Dementia of Alzheimer's type -Cerebrovascular accident in the past -Hypertension -Depression: Plan: Continue current medication regime ,monitoring and symptomatic treatment. Antiarrhythmics as per cardiology-amiodarone drip, converted to oral. Anticoagulated on Eliquis. IVP diuretics. Further recommendations to follow. The impression and plan of care has been dictated as directed. : I performed a history and examination of this patient, discussed the same with the dictator. I agree with the dictator's note ,documented as a scribe. Any additional findings or plans will be noted.
--- NOTE | 2017-11-16 14:17 | P.PN ---
Subjective Progress Note Date: 11/16/17 This is a 68-year-old female, most of the history was obtained from the medical record as the patient has dementia and is unable to give an accurate history. She is unsure exactly why she came to the hospital, she denies passing out at home or recalling that she passed out, denies any palpitations, chest discomfort, dizziness or lightheadedness. She does state that she's had an occasional cough, and she also admits to smoking. Patient's home medications include Norvasc, Namenda, losartan, ginkgo, Flonase, Aricept, Celexa, and a baby aspirin. Chest x-ray suggests possible volume overload and COPD. EKG on arrival showed atrial fibrillation with a rapid ventricular response with nonspecific ST-T wave changes. She continues to be in atrial fibrillation this morning, on a Cardizem drip, and the 80s. Let pressure on arrival 116/56, heart rate in the 130s on admission, 98% on room air, low-grade temperature of 99. Let pressure this morning 106/68 with a heart rate in the 80s, 90% on room air. White blood cell count 11.0, hemoglobin 12.5, platelet count of 151. Sodium 136, potassium 3.8, BUN 35, creatinine 1.4. Magnesium 1.9. CK 260, 228, 175. MB 0.19, 0.25, 0.23. Troponin 0.19, 0.25, 0.23. TSH 1.3. Patient is currently receiving IV fluids at 100 mL per hour. 11/15/2017 Patient seen and examined this morning, breathing overall has improved, she continues to be in atrial fibrillation, her heart rate at the time of my examination of into the 140s. We will start the patient on IV amiodarone today. We'll also give the patient 2 doses of IV Lasix. Blood pressure 108/60 , 94% on 2 L of oxygen. White blood cell count 6.4, hemoglobin 11, platelet count 159. Sodium 138, potassium 3.8, BUN 28, creatinine 0.9. 11/16/2017 Patient seen and examined this morning, feeling better, breathing improving, heart rate maintaining in the 90s today. IV amiodarone has infused, we will start the patient on oral amiodarone today. We will also discontinue the IV Lasix and start the patient on oral diuretics today. Blood pressure 112/76 with a heart rate of 96, 93% on 3 L of oxygen. White blood cell count 6.1, hemoglobin 10.9, sodium 138, potassium 3.5, BUN 20, creatinine 0.8, magnesium 1.7. Objective - Vital Signs Vital signs: Vital Signs Temp 98.9 F 11/16/17 09:31 Pulse 108 H 11/16/17 12:01 Resp 16 11/16/17 09:31 BP 112/77 11/16/17 09:31 Pulse Ox 93 L 11/16/17 09:31 Intake & Output 11/15/17 11/16/17 11/16/17 18:59 06:59 18:59 Intake Total 1164.907 442.970 0 Balance 1164.907 442.970 0 Weight 52.3 kg 52.5 kg Intake: Intake, IV Titration 208.907 442.970 Amount Amiodarone 450 mg In 208.907 142.970 Dextrose 5% in Water 250 ml @ 1 MG/MIN 34.53 mls/ hr IV .[id number] LINO Rx#: [id number] Sodium Chloride 0.9% 1, 300 000 ml @ 75 mls/hr IV . [id number] LINO Rx#:[id number] Oral 956 0 Other: Voiding Method Toilet Toilet # Voids 1 0 - Exam PHYSICAL EXAMINATION: GENERAL: 76-year-old female in no acute distress at the time of my examination HEENT: Head is atraumatic, normocephalic. Pupils equal, round. Sclera anicteric. Conjunctiva are clear. Mucous membranes of the mouth are moist. Neck is supple. There is no elevated jugular venous pressure. No carotid bruit is heard. HEART EXAMINATION: Heart S1 and S2 irregularly irregular CHEST EXAMINATION: Lungs reveal fine wheezing with decreased air exchange throughout ABDOMEN: Soft, nontender. Bowel sounds are heard. No organomegaly noted. EXTREMITIES: 2+ peripheral pulses with no evidence of peripheral edema and no calf tenderness noted. NEUROLOGIC patient is awake, alert and oriented X1. . - Labs CBC & Chem 7: 11/16/17 06:16 11/16/17 06:16 Labs: Abnormal Lab Results - Last 24 Hours (Table) 11/15/17 11/16/17 11/16/17 Range/Units 21:00 06:16 06:16 RBC 3.57 L (3.80-5.40) m/uL Hgb 10.9 L (11.4-16.0) gm/dL Hct 32.9 L (34.0-46.0) % Lymphocytes # 0.9 L (1.0-4.8) k/uL Chloride 109 H (98-107) mmol/L Carbon Dioxide 20 L (22-30) mmol/L BUN 20 H (7-17) mg/dL POC Glucose (mg/dL) 108 H (75-99) mg/dL Calcium 8.1 L (8.4-10.2) mg/dL Assessment and Plan Plan: Assessment and plan #1 atrial fibrillation with rapid ventricular response, appears to be a new onset for the patient. . #2 questionable syncopal episode. #3 nicotine dependence #4 hypertension #5 dementia #6 mild renal insufficiency, likely secondary to dehydration. Give #7 abnormal CK-MB and troponins, could be secondary to atrial fibrillation with rapid ventricular response, supply and demand mismatch. Plan We will discontinue the IV Lasix today and start the patient on oral diuretics. Amiodarone IV has infuse, we will start the patient on oral amiodarone. Replace the patient's magnesium. Discharge home [id number] . DNP note has been reviewed, I agree with a documented findings and plan of care. Patient was seen and examined.
[2017-11-16 15:12] LABS: Appearance,Urine Clear (Clear); Bacteria,Urine Occasional /hpf; Bilirubin,Urine Negative (Negative); Blood,Urine Moderate (Negative); Color,Urine Light Yellow; Glucose,Urine (UA) Negative (Negative); Hyaline Casts,Urine 12 /lpf (0-2); Ketones,Urine Negative (Negative); Leukocyte Esterase,Urine Moderate (Negative); Mucus,Urine Rare /hpf; Nitrite,Urine Negative (Negative); Protein,Urine Negative (Negative); RBC,Urine 1 /hpf (0-5); Specific Gravity,Urine 1.007 (1.001-1.035); Urobilinogen,Urine <2.0 mg/dL (<2.0); WBC,Urine 1 /hpf (0-5)
[2017-11-16] MEDS: MAGNESIUM SULFATE-D5W PMX 1 GM in DEXTROSE/WATER 1 100ML.BAG IVPB SCH ×2 (17:49→21:03)
[2017-11-16] MEDS: FUROSEMIDE 20 MG TAB PO SCH (18:00)
[2017-11-16 20:49] LABS: Glucose,Whole Blood 135 mg/dL (75-99)
[2017-11-16] MEDS ORDERED: QUEtiapine 25 MG TAB PO SCH (21:00)
[2017-11-16] MEDS: SODIUM CHLORIDE 0.9% 1,000 ML IV SCH (21:02)
[2017-11-16] MEDS: FAMOTIDINE 20 MG TAB PO SCH (21:07)
[2017-11-17] MEDS: METOPROLOL TARTRATE 25 MG TAB PO SCH ×4 (02:57→19:54)
[2017-11-17] MEDS: CITALOPRAM HYDROBROMIDE 20 MG TAB PO SCH (08:00)
[2017-11-17] MEDS: APIXABAN 2.5 MG TABLET PO SCH ×2 (08:00→19:53)
[2017-11-17] MEDS: FUROSEMIDE 20 MG TAB PO SCH ×2 (08:00→16:51)
[2017-11-17] MEDS: AMIODARONE 200 MG TAB PO SCH ×2 (08:00→19:54)
[2017-11-17] MEDS: MEMANTINE 10 MG TAB PO SCH ×2 (08:00→19:53)
[2017-11-17] MEDS: ATORVASTATIN 80 MG TAB PO SCH (08:00)
[2017-11-17] MEDS: metroNIDAZOLE 500 MG TAB PO SCH ×3 (08:00→19:53)
[2017-11-17] MEDS: ASPIRIN 81 MG PO SCH (08:00)
[2017-11-17] MEDS: FAMOTIDINE 20 MG TAB PO SCH ×2 (08:01→19:54)
[2017-11-17] MEDS: DONEPEZIL 10 MG TAB PO SCH ×2 (08:01→19:54)
[2017-11-17] MEDS: IPRATROPIUM-ALBUTEROL 3 ML NEB INHALATION SCH ×4 (08:11→20:42)
[2017-11-17] MEDS: SYMBICORT 160-4.5 MCG INHALER INHALATION SCH ×2 (08:12→20:40)
--- NOTE | 2017-11-17 12:16 | XR ---
EXAMINATION TYPE: XR chest 1V portable DATE OF EXAM: 11/17/2017 Comparison: 11/13/2017 Clinical History: 76 year-old female follow-up CHF CHF Findings: Heart borderline enlarged. New small effusions with bibasilar opacities and developing consolidation right upper lobe marginated by the minor fissure. Impression: Borderline heart size with new multi focal airspace disease and small effusions. Correlate for CHF an d early developing pulmonary edema.
[2017-11-17 12:39] VITALS: RESP 18
[2017-11-17] MEDS ORDERED: Potassium Replacement Protocol 1 EACH MISC MISCELLANE PRN (14:04)
--- NOTE | 2017-11-17 14:06 | P.PN ---
Subjective Progress Note Date: 11/17/17 Progress note dictated for Dr. Mari> Interval history:76-year-old female with a history of dementia has been having diarrhea was found by the family members at her home passed out in the stool. Patient lives by herself. Patient appears to have diarrhea patient cannot give me a clear history how long she has diarrhea patient baseline creatinine is within normal limits which has gone up quite a bit patient appears to be volume depleted leading to atrial fibrillation and syncopal episode. Patient's C. diff is negative patient will be started on Imodium for her diarrhea for some provided treatment patient to IV fluids will be continued at 100 mL per hour in spite of her elevated BNP and chest x-ray findings of possible volume overload my review of the chest x-ray did appear slightly patient appears to have some chronic interstitial changes rather than volume overload. We'll closely monitor. Echocardiogram will be obtained. Patient's previous echocardiogram is essentially within normal limits. Patient was started on diltiazem which will be continued patient will be hydrated. Patient is hypotensive with elevated creatinine of 1.54 her baseline creatinine is around 0.7. Patient appears to have advanced dementia, PT and OT will be consulted probably she can' t leave her alone by herself anymore. Patient is wheezing on exam may have COPD history. Patient will be started on inhaled steroids and albuterol ipratropium. When asked patient's face she smokes on and off. 11/15/2017 Patient is seen and examined by me at bedside, patient looks to me she is alert awake and oriented to time place and person, she knows she is in the hospital and [facility]. She knows this is 2017 but she couldn't remember the dates exactly, and she couldn't remember the name of the president Mr. Cruz. She knows why she is in the hospital for syncope heart arrhythmia and diarrhea and patient states she has loose bowel movements with greenish in color and watery, no abdominal pain or nausea vomiting. Patient could not states for how long to have diarrhea Patient BMP was unremarkable, troponins are mildly elevated, liver enzymes are within normal limits. Natural proBNP 9040, TSH 1.3. CBC was unremarkable except for mild anemia at 11. CXR: COPD. Patient on statin, eliquis, asa, metoprol 11/16/2017 maintained on amiodarone drip. Atrial fibrillation better controlled today with heart rates 80s to 90s.Amiodarone drip converted to oral as per cardiology. Anticoagulated on Eliquis. Diuresing on Lasix IV push. Continues on Flagyl, diarrhea improving. Diet intake fluctuates from 0-75%. Renal function significantly improved. Denies nausea vomiting. No abdominal pain. Denies chest pain, palpitations. MRI performed yesterday reporting no acute process, prominent small vessel ischemic change-stable compared to prior MRI. EEG pending. 11/17/17 maintained on oral amiodarone and oral Lasix. Diuresing well with decrease in weight. BMP pending. Chest x-ray reporting new multifocal airspace disease, small effusions. Telemetry reporting atrial fibrillation, controlled ventricular rate, heart rates 80s to low 100s. PT consult in place with evaluation pending. Afebrile. Objective - Vital Signs Vital signs: Vital Signs Temp 97.5 F L 11/17/17 12:00 Pulse 102 H 11/17/17 12:19 Resp 18 11/17/17 12:00 BP 88/50 11/17/17 12:00 Pulse Ox 91 L 11/17/17 12:00 Intake & Output 11/16/17 11/17/17 11/17/17 18:59 06:59 18:59 Intake Total 240 250 240 Balance 240 250 240 Weight 51.8 kg Intake: IV 50 0.9 50 Intake, IV Titration 200 Amount Magnesium Sulfate-D5w Pmx 200 1 gm In Dextrose/Water 1 100ml.bag @ 100 mls/hr IVPB Q1H [facility] Rx#: [id number] Oral 240 240 Other: Voiding Method Toilet Toilet Toilet # Voids 1 1 # Bowel Movements 1 - Exam GENERAL: The patient is alert and oriented x1, no acute distress. HEENT: Pupils are round and equally reacting to light. EOMI. No scleral icterus. No conjunctival pallor. Normocephalic, atraumatic. Oral mucosa moist CARDIOVASCULAR: S1 and S2 present. No murmurs, rubs, or gallops. irregularly irregular rhythm. Mild tachycardia PULMONARY: Decreased air entry with expiratory wheezing. ABDOMEN: Soft, nontender, nondistended, normoactive bowel sounds. No palpable organomegaly. MUSCULOSKELETAL: No joint swelling or deformity. EXTREMITIES: No cyanosis, clubbing, or pedal edema. NEUROLOGICAL: Gross neurological examination did not reveal any focal deficits. - Labs CBC & Chem 7: 11/16/17 06:16 11/16/17 06:16 Labs: Abnormal Lab Results - Last 24 Hours (Table) 11/16/17 11/16/17 Range/Units 13:30 20:48 POC Glucose (mg/dL) 135 H (75-99) mg/dL Urine Blood Moderate H (Negative) Ur Leukocyte Esterase Moderate H (Negative) Urine Bacteria Occasional H (None) /hpf Hyaline Casts 12 H (0-2) /lpf Urine Mucus Rare H (None) /hpf Assessment and Plan Assessment: -New onset atrial fibrillation with RVR, EF 55-60%. -Acute renal failure: Secondary to diarrhea intravascularly depletion , improving -Diarrhea, C. diff is negative. -Dehydration and hypovolemia -Mildly elevated troponins probably secondary to A. fib further -COPD with minimal exacerbation -Syncope, cardiology evaluation is appreciated, mostly related to her dehydration, hypovolemia and new onset A. fib. MRI nonacute -Confusion, Probable related to dementia: Dementia of Alzheimer's type -Cerebrovascular accident in the past -Hypertension Plan: Continue current medication regime , oral amiodarone, Lasix, monitoring and symptomatic treatment. PT evaluation pending, possible subacute rehab at discharge. BMP pending. Antiarrhythmics as per cardiology. Anticoagulated on Eliquis. Further recommendations to follow. The impression and plan of care has been dictated as directed. : I performed a history and examination of this patient, discussed the same with the dictator. I agree with the dictator's note ,documented as a scribe. Any additional findings or plans will be noted.
[2017-11-17 14:27] LABS: Calcium 8.3 mg/dL (8.4-10.2); Potassium 3.4 mmol/L (3.5-5.1)
--- NOTE | 2017-11-17 14:59 | P.PN ---
Subjective Progress Note Date: 11/17/17 This is a 68-year-old female, most of the history was obtained from the medical record as the patient has dementia and is unable to give an accurate history. She is unsure exactly why she came to the hospital, she denies passing out at home or recalling that she passed out, denies any palpitations, chest discomfort, dizziness or lightheadedness. She does state that she's had an occasional cough, and she also admits to smoking. Patient's home medications include Norvasc, Namenda, losartan, ginkgo, Flonase, Aricept, Celexa, and a baby aspirin. Chest x-ray suggests possible volume overload and COPD. EKG on arrival showed atrial fibrillation with a rapid ventricular response with nonspecific ST-T wave changes. She continues to be in atrial fibrillation this morning, on a Cardizem drip, and the 80s. Let pressure on arrival 116/56, heart rate in the 130s on admission, 98% on room air, low-grade temperature of 99. Let pressure this morning 106/68 with a heart rate in the 80s, 90% on room air. White blood cell count 11.0, hemoglobin 12.5, platelet count of 151. Sodium 136, potassium 3.8, BUN 35, creatinine 1.4. Magnesium 1.9. CK 260, 228, 175. MB 0.19, 0.25, 0.23. Troponin 0.19, 0.25, 0.23. TSH 1.3. Patient is currently receiving IV fluids at 100 mL per hour. 11/15/2017 Patient seen and examined this morning, breathing overall has improved, she continues to be in atrial fibrillation, her heart rate at the time of my examination of into the 140s. We will start the patient on IV amiodarone today. We'll also give the patient 2 doses of IV Lasix. Blood pressure 108/60 , 94% on 2 L of oxygen. White blood cell count 6.4, hemoglobin 11, platelet count 159. Sodium 138, potassium 3.8, BUN 28, creatinine 0.9. 11/16/2017 Patient seen and examined this morning, feeling better, breathing improving, heart rate maintaining in the 90s today. IV amiodarone has infused, we will start the patient on oral amiodarone today. We will also discontinue the IV Lasix and start the patient on oral diuretics today. Blood pressure 112/76 with a heart rate of 96, 93% on 3 L of oxygen. White blood cell count 6.1, hemoglobin 10.9, sodium 138, potassium 3.5, BUN 20, creatinine 0.8, magnesium 1.7. 11/17/2017 Patient seen and examined this morning, feeling much better, she's been up ambulating in the hallway today without any difficulty. Her rate being maintained in the 90s. Objective - Vital Signs Vital signs: Vital Signs Temp 97.5 F L 11/17/17 12:00 Pulse 102 H 11/17/17 12:19 Resp 18 11/17/17 12:00 BP 88/50 11/17/17 12:00 Pulse Ox 91 L 11/17/17 12:00 Intake & Output 11/16/17 11/17/17 11/17/17 18:59 06:59 18:59 Intake Total 240 250 240 Balance 240 250 240 Weight 51.8 kg Intake: IV 50 0.9 50 Intake, IV Titration 200 Amount Magnesium Sulfate-D5w Pmx 200 1 gm In Dextrose/Water 1 100ml.bag @ 100 mls/hr IVPB Q1H [facility] Rx#: [id number] Oral 240 240 Other: Voiding Method Toilet Toilet Toilet # Voids 1 1 # Bowel Movements 1 - Exam PHYSICAL EXAMINATION: GENERAL: 76-year-old female in no acute distress at the time of my examination HEENT: Head is atraumatic, normocephalic. Pupils equal, round. Sclera anicteric. Conjunctiva are clear. Mucous membranes of the mouth are moist. Neck is supple. There is no elevated jugular venous pressure. No carotid bruit is heard. HEART EXAMINATION: Heart S1 and S2 irregularly irregular CHEST EXAMINATION: Lungs reveal fine wheezing with decreased air exchange throughout ABDOMEN: Soft, nontender. Bowel sounds are heard. No organomegaly noted. EXTREMITIES: 2+ peripheral pulses with no evidence of peripheral edema and no calf tenderness noted. NEUROLOGIC patient is awake, alert and oriented X1. . - Labs CBC & Chem 7: 11/16/17 06:16 11/17/17 12:19 Labs: Abnormal Lab Results - Last 24 Hours (Table) 11/16/17 11/16/17 11/17/17 Range/Units 13:30 20:48 12:19 Potassium 3.4 L (3.5-5.1) mmol/L Chloride 108 H (98-107) mmol/L BUN 24 H (7-17) mg/dL POC Glucose (mg/dL) 135 H (75-99) mg/dL Calcium 8.3 L (8.4-10.2) mg/dL Urine Blood Moderate H (Negative) Ur Leukocyte Esterase Moderate H (Negative) Urine Bacteria Occasional H (None) /hpf Hyaline Casts 12 H (0-2) /lpf Urine Mucus Rare H (None) /hpf Assessment and Plan Plan: Assessment and plan #1 atrial fibrillation with rapid ventricular response, appears to be a new onset for the patient. . #2 questionable syncopal episode. #3 nicotine dependence #4 hypertension #5 dementia #6 mild renal insufficiency, likely secondary to dehydration. Give #7 abnormal CK-MB and troponins, could be secondary to atrial fibrillation with rapid ventricular response, supply and demand mismatch. Plan Cardiology's perspective, we will continue current medications. She may be able to be discharged home once cleared by primary and we will make her a follow -up appointment in the office post discharge. DNP note has been reviewed, I agree with a documented findings and plan of care. Patient was seen and examined.
[2017-11-17] MEDS: MAGNESIUM SULFATE-D5W PMX 1 GM in DEXTROSE/WATER 1 100ML.BAG IVPB SCH ×2 (15:26→15:27)
[2017-11-17] MEDS: SODIUM CHLORIDE 0.9% 1,000 ML IV SCH (15:27)
[2017-11-17] MEDS: POTASSIUM CHLORIDE 10 MEQ in WATER FOR INJECTION 1 100ML.BAG IVPB SCH ×2 (17:05→18:39)
[2017-11-17] MEDS: POTASSIUM CHLORIDE ER 20 MEQ TAB.ER PO SCH ×3 (19:53→23:32)
[2017-11-17] MEDS: QUEtiapine 25 MG TAB PO SCH (19:54)
[2017-11-18] MEDS: METOPROLOL TARTRATE 25 MG TAB PO SCH ×2 (04:28→10:08)
[2017-11-18 06:16] LABS: Basophils % (A) 0 %; Eosinophils # (A) 0.2 k/uL (0-0.7); Eosinophils % (A) 3 %; HCT 33.3 % (34.0-46.0); HGB 10.7 gm/dL (11.4-16.0); Lymphocytes # (A) 1.1 k/uL (1.0-4.8); Lymphocytes % (A) 14 %; MCH 29.4 pg (25.0-35.0); Mean Platelet Volume 7.8; Monocytes # (A) 0.6 k/uL (0-1.0); Monocytes % (A) 7 %; Neutrophils # (A) 6.1 k/uL (1.3-7.7); Neutrophils % (A) 74 %; Platelet Count 210 k/uL (150-450); RBC 3.62 m/uL (3.80-5.40); RDW 14.2 % (11.5-15.5); WBC 8.3 k/uL (3.8-10.6)
[2017-11-18 06:17] LABS: Calcium 8.1 mg/dL (8.4-10.2); Potassium 3.9 mmol/L (3.5-5.1)
[2017-11-18] MEDS: SYMBICORT 160-4.5 MCG INHALER INHALATION SCH (08:42)
[2017-11-18] MEDS: IPRATROPIUM-ALBUTEROL 3 ML NEB INHALATION SCH ×2 (08:42→11:59)
[2017-11-18] MEDS: AMIODARONE 200 MG TAB PO SCH (10:08)
[2017-11-18] MEDS: CITALOPRAM HYDROBROMIDE 20 MG TAB PO SCH (10:09)
[2017-11-18] MEDS: FAMOTIDINE 20 MG TAB PO SCH (10:09)
[2017-11-18] MEDS: ASPIRIN 81 MG PO SCH (10:09)
[2017-11-18] MEDS: MEMANTINE 10 MG TAB PO SCH (10:09)
[2017-11-18] MEDS: DONEPEZIL 10 MG TAB PO SCH (10:09)
[2017-11-18] MEDS: APIXABAN 2.5 MG TABLET PO SCH (10:09)
[2017-11-18] MEDS: ATORVASTATIN 80 MG TAB PO SCH (10:09)
[2017-11-18] MEDS: FUROSEMIDE 20 MG TAB PO SCH (10:09)
[2017-11-18] MEDS: metroNIDAZOLE 500 MG TAB PO SCH (10:10)
[2017-11-18 11:26] VITALS: BP 89/49; TEMP 97
[2017-11-18] MEDS: SODIUM CHLORIDE 0.9% 1,000 ML IV SCH (11:26)
[2017-11-18 12:03] VITALS: PULSE 80
--- NOTE | 2017-11-18 18:38 | DS ---
DISCHARGE SUMMARY FINAL DIAGNOSES: 1. New onset atrial fibrillation with rapid ventricular rate. 2. Acute renal failure possibly secondary to prerenal factors and diarrhea, acute tubular necrosis. 3. Diarrhea, Clostridium difficile negative. 4. Dehydration, hypovolemia. 5. Mildly elevated troponins, possibly secondary to atrial fibrillation. 6. Chronic obstructive pulmonary disease. 7. Syncope. 8. Confusion related dementia, chronic metabolic encephalopathy. 9. Cerebrovascular accident in the past. 10.Hypertension. DISCHARGE DISPOSITION: The patient will be discharged in stable condition with guarded prognosis. HISTORY OF PRESENT ILLNESS: This 76-year-old woman with a past medical history of multiple medical problems was admitted with atrial ablation and multiple other medical issues. Patient was treated symptomatically. Patient improved significantly. Patient will be discharged in stable condition with guarded prognosis. Multiple consultants have cleared the patient for discharge. TOTAL TIME TAKEN: 35 minutes. EXAM: Vitals are stable. CARDIOVASCULAR: S1, S2 muffled. ABDOMEN: Soft. NERVOUS SYSTEM: No focal deficits. DISCHARGE ADVICE AND MEDICATIONS: 1. Diet cardiac. 2. Activity limited until followup. 3. Follow up with Dr. Teresa in 2-[address] Hope is recommended. 4. Medications are: a. Ecotrin 81 mg p.o. daily. b. Biotin 5 mg p.o. daily. c. Vitamin D3 5000 daily. d. Celexa 20 mg p.o. daily. e. Vitamin B12 1000 mcg daily. f. Aricept 10 mg p.o. b.i.d. g. Fluticasone 1 spray daily. h. [place] biloba 120 mg p.o. daily. i. Namenda 10 mg p.o. b.i.d. j. [place]-3 1 p.o. daily. k. Cordarone 20 mg p.o. b.i.d. l. Eliquis 2.5 mg p.o. b.i.d. m. Lipitor 80 mg p.o. daily. n. Symbicort 160/4.5 two puffs b.i.d. o. Lasix 20 mg p.o. b.i.d. p. Imodium p.r.n. q. Toprol-XL 100 mg p.o. daily. r. Flagyl 500 mg p.o. t.i.d. for 2 more days. Once again, the patient will be discharged in a stable condition with a guarded prognosis. MMODL / IJN: [id number] /
[2017-11-19] MEDS ORDERED: METOPROLOL SUCCINATE (ER) 100 MG TAB.ER.24H PO SCH (09:00)
--- NOTE | 2017-11-19 19:42 | EEG ---
ELECTROENCEPHALOGRAM REPORT DATE OF EE11/16/2017 ELECTROENCEPHALOGRAPHIC EXAMINATION REPORT: INDICATION FOR EXAMINATION: This patient is a 76-year-old female being evaluated for episode of confusion and loss of consciousness. Patient has history of underlying dementia. AGE: 76. EEG FINDINGS: A routine 21-channel awake digital EEG recording was accomplished utilizing the 10-20 international system with bipolar and referential montages. The background activity in the most alert resting state consists of a low to medium amplitude, fairly well developed and well sustained 6-7 Hz activity over the posterior head regions. This posterior rhythm attenuates to eye opening. There is a moderate amount of low amplitude 18-20 Hz beta activity seen maximally over the anterior head regions. Muscle and movement artifact was observed on a few occasions during the tracing. Hyperventilation was not performed. Photic stimulation at flash frequencies of 2-30 Hz produced a minimal occipital driving response. No epileptiform discharges were seen. IMPRESSION: This EEG is moderately abnormal in a diffuse fashion due to slowing of the EEG background. The EEG failed to reveal any focal, lateralized, or epileptiform abnormalities. Clinical correlation is recommended. MMODL / IJN: [id number] /
== END 2017-11-18 15:06 | disposition home health service (06) | DRG 308 ==
LOC: EC 16:51 → 6SEL 18:48
PROVIDERS: ADMIT Hospitalist; ATTEND Hospitalist
DX: I48.1 Persistent atrial fibrillation (principal); G93.41 Metabolic encephalopathy; N17.0 Acute kidney failure with tubular necrosis; J44.1 Chronic obstructive pulmonary disease with (acute) exacerbation; E86.0 Dehydration; E86.1 Hypovolemia; F02.80 Dementia in other diseases classified elsewhere, unspecified severity, without behavioral disturbance, psychotic disturbance, mood disturbance, and anxiety; F17.200 Nicotine dependence, unspecified, uncomplicated; F32.9 Major depressive disorder, single episode, unspecified; G30.9 Alzheimer's disease, unspecified; I11.0 Hypertensive heart disease with heart failure; Z79.01 Long term (current) use of anticoagulants; Z79.899 Other long term (current) drug therapy; Z82.49 Family history of ischemic heart disease and other diseases of the circulatory system; Z86.73 Personal history of transient ischemic attack (TIA), and cerebral infarction without residual deficits; R19.7 Diarrhea, unspecified; D63.8 Anemia in other chronic diseases classified elsewhere; Z79.82 Long term (current) use of aspirin
CPT/HCPCS: 36415; 70551; 71045; 71046; 80048; 80053; 80061; 81001; 82550; 82553; 83090; 83735; 83880; 84100; 84443; 84484; 85025; 85027; 85049; 85379; 85610; 85730; 87324; 93005; 93306; 94640; 94760; 95816; 96365; 96366; 96376; 99291

== ENCOUNTER 2018-05-30 20:19 | Emergency (ER) | payer BC, MEDICARE ==
--- NOTE | 2018-05-30 22:27 | ED ---
General Adult HPI <Damon Dawson - Last Filed: 05/31/18 04:59> - General Source: patient, family, EMS, RN notes reviewed, old records reviewed Mode of arrival: EMS Limitations: altered mental status <Walt Farah - Last Filed: 05/31/18 16:42> - General Chief complaint: Psychiatric Symptoms Stated complaint: behavioral Time Seen by Provider: 05/30/18 21:43 - History of Present Illness Initial comments: 77-year-old female with a 2 year history of progressive dementia presents for psychiatric evaluation. Patient has had increased aggression, agitation over the past several weeks. His been multiple medication adjustments by her neurologist. Patient's symptoms have failed to be controlled. She's been aggressive towards family members, with verbal and physical outbursts. She has been threatening suicide, stating she wants to step in front of traffic, fall down stairs. There has been no suicide attempt. Patient's family has had to remove all the knives from the home. They are concerned that the patient will herself or her family members. (Walt Farah) - Related Data Home Medications Medication Instructions Recorded Confirmed Aspirin EC [Ecotrin Low Dose] 81 mg PO DAILY 11/13/17 05/31/18 Biotin 5 mg PO DAILY 11/13/17 05/31/18 Cholecalciferol [Vitamin D3] 5,000 unit PO DAILY 11/13/17 05/31/18 Citalopram Hydrobromide [CeleXA] 20 mg PO DAILY 11/13/17 05/31/18 Cyanocobalamin (Vitamin B-12) 1,000 mcg PO DAILY 11/13/17 05/31/18 [Vitamin B-12] Donepezil HCl [Aricept] 10 mg PO DAILY 11/13/17 05/31/18 Fluticasone Nasal [place] [Flonase 1 spray EA NOSTRIL QID PRN 11/13/17 05/31/18 Nasal [place]] Furosemide [Lasix] 20 mg PO DAILY 05/31/18 05/31/18 Ipratropium/Albuterol Sulfate 1 puff INHALATION RT-QID 05/31/18 05/31/18 [Combivent Respimat Inhaler] Magnesium Oxide [Mag-Ox] 400 mg PO DAILY 05/31/18 05/31/18 Melatonin 10 mg PO HS PRN 05/31/18 05/31/18 [place]-3 Fatty Acids/Fish Oil [Fish 1 cap PO DAILY 05/31/18 05/31/18 Oil 1,000 mg Softgel] Potassium Chloride [Klor-Con 10] 10 meq PO BID 05/31/18 05/31/18 QUEtiapine [SEROquel] 25 mg PO HS 05/31/18 05/31/18 Previous Rx's Medication Instructions Recorded Apixaban [Eliquis] 2.5 mg PO BID #60 tablet 11/18/17 Allergies Allergy/AdvReac Type Severity Reaction Status Date / Time No Known Allergies Allergy Verified 05/31/18 09:40 Review of Systems ROS Other: All systems not noted in ROS Statement are negative. <Damon Dawson - Last Filed: 05/31/18 04:59> ROS Other: All systems not noted in ROS Statement are negative. <Walt Farah - Last Filed: 05/31/18 16:42> ROS Statement: Those systems with pertinent positive or pertinent negative responses have been documented in the HPI. Past Medical History Past Medical History: CVA/TIA, Dementia, Hypertension Additional Past Medical History / Comment(s): subclavian steal syndrome, new onset afib (11/13/17) History of Any Multi-Drug Resistant Organisms: None Reported Past Surgical History: No Surgical Hx Reported Past Anesthesia/Blood Transfusion Reactions: No Reported Reaction Past Psychological History: No Psychological Hx Reported Smoking Status: Current some day smoker Past Alcohol Use History: None Reported - Past Family History Mother Family Medical History: Congestive Heart Failure (CHF) Brother(s) Family Medical History: Myocardial Infarction ([place]) Additional Family Medical History / Comment(s): [place] - 36years old quadruple bypass, other brother age 42. <Walt Farah - Last Filed: 05/31/18 16:42> General Exam Limitations: altered mental status General appearance: alert, in no apparent distress Head exam: Present: atraumatic, normocephalic Eye exam: Present: normal appearance, PERRL, EOMI Neck exam: Present: normal inspection. Absent: tenderness, meningismus Respiratory exam: Present: normal lung sounds bilaterally. Absent: respiratory distress, wheezes Cardiovascular Exam: Present: regular rate, normal rhythm GI/Abdominal exam: Present: soft. Absent: distended, tenderness, guarding Extremities exam: Present: normal inspection, normal capillary refill. Absent: pedal edema Neurological exam: Present: alert. Absent: oriented X3, motor sensory deficit Psychiatric exam: Present: agitated, anxious, suicidal ideation Skin exam: Present: warm, dry, intact <Walt Farah - Last Filed: 05/31/18 16:42> Course <Damon Dawson - Last Filed: 05/31/18 04:59> <Walt Farah - Last Filed: 05/31/18 16:42> Vital Signs 05/30/18 05/30/18 05/31/18 20:46 22:59 07:13 Temperature 97.3 F L 97.7 F Pulse Rate 68 61 62 Respiratory 18 16 18 Rate Blood Pressure 166/77 169/74 160/79 O2 Sat by Pulse 96 98 95 Oximetry - Reevaluation(s) Reevaluation #1: 05/30/18 22:26 Patient's son has petitioned by his mother. (Walt Farah) Reevaluation #2: 05/30/18 23:27 Patient's CBC, CMP, urinalysis unremarkable. Medically cleared awaiting EPS evaluation. (Walt Farah) Medical Decision Making - Lab Data Result diagrams: 05/30/18 22:19 05/30/18 22:19 <Damon Dawson - Last Filed: 05/31/18 04:59> - Lab Data Result diagrams: 05/30/18 22:19 05/30/18 22:19 <Walt Farah - Last Filed: 05/31/18 16:42> - Medical Decision Making I evaluated this patient for purposes of completing the clinical certification. (Damon Dawson) The patient remained in the emergency department for close to 24 hours. She was observed by the preceding physicians awaiting psychiatric placement. She has been accepted to [facility] psychiatric unit. She will be transferred at 8 PM today. (Walt Farah) - Lab Data Lab Results 05/30/18 05/30/18 05/30/18 Range/Units 22:19 22:19 22:52 WBC 8.6 (3.8-10.6) k/uL RBC 3.80 (3.80-5.40) m/uL Hgb 12.3 (11.4-16.0) gm/dL Hct 36.2 (34.0-46.0) % MCV 95.3 (80.0-100.0) fL MCH 32.3 (25.0-35.0) pg MCHC 33.9 (31.0-37.0) g/dL RDW 13.2 (11.5-15.5) % Plt Count 207 (150-450) k/uL Neutrophils % 71 % Lymphocytes % 19 % Monocytes % 4 % Eosinophils % 4 % Basophils % 0 % Neutrophils # 6.1 (1.3-7.7) k/uL Lymphocytes # 1.6 (1.0-4.8) k/uL Monocytes # 0.4 (0-1.0) k/uL Eosinophils # 0.3 (0-0.7) k/uL Basophils # 0.0 (0-0.2) k/uL Sodium 140 (137-145) mmol/L Potassium 4.2 (3.5-5.1) mmol/L Chloride 107 (98-107) mmol/L Carbon Dioxide 25 (22-30) mmol/L Anion Gap 8 mmol/L BUN 20 H (7-17) mg/dL Creatinine 1.06 H (0.52-1.04) mg/dL Est GFR (CKD-EPI)AfAm 58 (>60 ml/min/1.73 sqM) Est GFR (CKD-EPI)NonAf 50 (>60 ml/min/1.73 sqM) Glucose 99 (74-99) mg/dL Calcium 9.5 (8.4-10.2) mg/dL Total Bilirubin 0.6 (0.2-1.3) mg/dL AST 28 (14-36) U/L ALT 34 (9-52) U/L Alkaline Phosphatase 100 (38-126) U/L Total Protein 7.3 (6.3-8.2) g/dL Albumin 4.2 (3.5-5.0) g/dL Urine Color Light Yellow Urine Appearance Clear (Clear) Urine pH 8.0 (5.0-8.0) Ur Specific [place] 1.009 (1.001-1.035) Urine Protein Negative (Negative) Urine Glucose (UA) Negative (Negative) Urine Ketones Negative (Negative) Urine Blood Negative (Negative) Urine Nitrite Negative (Negative) Urine Bilirubin Negative (Negative) Urine Urobilinogen <2.0 (<2.0) mg/dL Ur Leukocyte Esterase Small H (Negative) Urine RBC 1 (0-5) /hpf Urine WBC 7 H (0-5) /hpf Ur Squamous Epith Cells <1 (0-4) /hpf Urine Bacteria Rare H (None) /hpf Urine Mucus Rare H (None) /hpf Urine Opiates Screen Not Detected (NotDetected) Ur Oxycodone Screen Not Detected (NotDetected) Urine Methadone Screen Not Detected (NotDetected) Ur Propoxyphene Screen Not Detected (NotDetected) Ur Barbiturates Screen Not Detected (NotDetected) U Tricyclic Antidepress Not Detected (NotDetected) Ur Phencyclidine Scrn Not Detected (NotDetected) Ur Amphetamines Screen Not Detected (NotDetected) U Methamphetamines Scrn Not Detected (NotDetected) U Benzodiazepines Scrn Not Detected (NotDetected) Urine Cocaine Screen Not Detected (NotDetected) U Marijuana (THC) Screen Not Detected (NotDetected) Serum Alcohol <10 mg/dL Disposition <Damon Dawson - Last Filed: 05/31/18 04:59> Is patient prescribed a controlled substance at d/c from ED?: No Decision to Admit Reason: Admit from EC Decision Date: 05/31/18 Decision Time: 16:42 - Out of Hospital Transfer - Req. Specs Out of Hospital Transfer - Requested Specifics: Psychiatric Non-ICU ( Transferred to [facility]) <Walt Farah - Last Filed: 05/31/18 16:42> Clinical Impression: Suicidal ideation, Psychosis, Dementia Disposition: OTHER INSTITUTION NOT DEFINED Condition: Stable Referrals: Eliot Teresa DO [Primary Care Provider] - 1-2 days
[2018-05-30 22:37] LABS: Basophils % (A) 0 %; Eosinophils # (A) 0.3 k/uL (0-0.7); Eosinophils % (A) 4 %; HCT 36.2 % (34.0-46.0); HGB 12.3 gm/dL (11.4-16.0); Lymphocytes # (A) 1.6 k/uL (1.0-4.8); Lymphocytes % (A) 19 %; MCH 32.3 pg (25.0-35.0); MCHC 33.9 g/dL (31.0-37.0); MCV 95.3 fL (80.0-100.0); Mean Platelet Volume 7.6; Monocytes # (A) 0.4 k/uL (0-1.0); Monocytes % (A) 4 %; Neutrophils # (A) 6.1 k/uL (1.3-7.7); Neutrophils % (A) 71 %; Platelet Count 207 k/uL (150-450); RDW 13.2 % (11.5-15.5); WBC 8.6 k/uL (3.8-10.6)
[2018-05-30 22:43] LABS: ALT 34 U/L (9-52); AST 28 U/L (14-36); Albumin 4.2 g/dL (3.5-5.0); Alcohol <10 mg/dL; Alkaline Phosphatase 100 U/L (38-126); Anion Gap 8 mmol/L; Blood Urea Nitrogen 20 mg/dL (7-17); Calcium 9.5 mg/dL (8.4-10.2); Carbon Dioxide 25 mmol/L (22-30); Chloride 107 mmol/L (98-107); Glucose 99 mg/dL (74-99); Potassium 4.2 mmol/L (3.5-5.1); Sodium 140 mmol/L (137-145); Total Bilirubin 0.6 mg/dL (0.2-1.3); Total Protein 7.3 g/dL (6.3-8.2)
[2018-05-30 23:10] LABS: Appearance,Urine Clear (Clear); Bacteria,Urine Rare /hpf; Bilirubin,Urine Negative (Negative); Blood,Urine Negative (Negative); Color,Urine Light Yellow; Glucose,Urine (UA) Negative (Negative); Ketones,Urine Negative (Negative); Leukocyte Esterase,Urine Small (Negative); Mucus,Urine Rare /hpf; Nitrite,Urine Negative (Negative); Protein,Urine Negative (Negative); RBC,Urine 1 /hpf (0-5); Specific Gravity,Urine 1.009 (1.001-1.035); Squamous Epithelial Cell,Urine <1 /hpf (0-4); Urobilinogen,Urine <2.0 mg/dL (<2.0); WBC,Urine 7 /hpf (0-5)
[2018-05-30 23:18] LABS: Amphetamine Screen,Urine Not Detected (NotDetected); Barbiturate Screen,Urine Not Detected (NotDetected); Benzodiazepines Screen,Urine Not Detected (NotDetected); Cocaine Screen,Urine Not Detected (NotDetected); Methadone Screen, Urine Not Detected (NotDetected); Opiate Screen,Urine Not Detected (NotDetected); Oxycodone Screen, Urine Not Detected (NotDetected); Phencyclidine Screen,Urine Not Detected (NotDetected); Tricyclic Antidepressant,Urine Not Detected (NotDetected); Urn Cannabinoid Scrn Not Detected (NotDetected)
[2018-05-31 07:14] VITALS: RESP 18
[2018-05-31 20:15] VITALS: BP 123/58; PULSE 67; TEMP 98
[2018-05-31] MEDS ORDERED: QUEtiapine 25 MG TAB PO SCH (21:00)
[2018-05-31] MEDS ORDERED: APIXABAN 2.5 MG TABLET PO SCH (21:00)
[2018-06-01] MEDS ORDERED: MAGNESIUM OXIDE 400 MG TAB PO SCH (09:00)
[2018-06-01] MEDS ORDERED: FUROSEMIDE 20 MG TAB PO SCH (09:00)
[2018-06-01] MEDS ORDERED: CITALOPRAM HYDROBROMIDE 20 MG TAB PO SCH (09:00)
[2018-06-01] MEDS ORDERED: DONEPEZIL 10 MG TAB PO SCH (09:00)
[2018-06-01] MEDS ORDERED: ASPIRIN 81 MG PO SCH (09:00)
== END 2018-05-31 20:30 | disposition other institution (70) ==
LOC: EC 20:19 → SUPCPDRO 20:19 → EC 05-31 20:30
DX: F29 Unspecified psychosis not due to a substance or known physiological condition (principal); R45.851 Suicidal ideations; F03.90 Unspecified dementia, unspecified severity, without behavioral disturbance, psychotic disturbance, mood disturbance, and anxiety; I10 Essential (primary) hypertension; F17.200 Nicotine dependence, unspecified, uncomplicated; Z86.73 Personal history of transient ischemic attack (TIA), and cerebral infarction without residual deficits; Z79.82 Long term (current) use of aspirin; Z79.899 Other long term (current) drug therapy
CPT/HCPCS: 36415; 80053; 85025; 81001; 80306; 99285; G0480; 80320

== ENCOUNTER 2020-02-09 11:00 | Emergency (ER) | payer MEDICARE, OTHER ==
[2020-02-09 11:14] VITALS: TEMP 97.6
[2020-02-09] MEDS ORDERED: SODIUM CHLORIDE 0.9% 1,000 ML IV ONE (11:21)
[2020-02-09] MEDS ORDERED: SODIUM CHLORIDE 0.9% 500 ML 500 ML IV ONE (11:21)
[2020-02-09] MEDS ORDERED: LIDOCAINE 1% INJ 10MG/ML (20 ML MDV) SQ ONE (11:30)
--- NOTE | 2020-02-09 11:34 | ED ---
Fall HPI - General Source: patient, EMS, RN notes reviewed, old records reviewed Mode of arrival: EMS <Anitha Thompsonily - Last Filed: 02/09/20 13:47> <Walt Farah - Last Filed: 02/09/20 15:40> - General Chief Complaint: Fall Stated Complaint: Fall Time Seen by Provider: 02/09/20 11:07 - History of Present Illness Initial Comments: 79-year-old female presents emergency department today from senior care. She has underlying history of dementia. Patient has reportedly had some more frequent falls when she does not wear her oxygen at the senior care. She reportedly fell from her bed today and struck the right eyebrow and forehead. Patient is on blood thinners, eliquis. Patient had no loss of consciousness. She has a poor story and but denies any other significant areas of pain. She reports no back pain. She did state that she felt somewhat dizzy to nursing staff prior to arrival. (Tara Thompson) - Related Data Home Medications Medication Instructions Recorded Confirmed Donepezil HCl [Aricept] 10 mg PO HS 11/13/17 02/09/20 Potassium Chloride [Klor-Con 10] 10 meq PO BID@0700,1600 05/31/18 02/09/20 Apixaban [Eliquis] 2.5 mg PO BID@0700,1600 02/09/20 02/09/20 Divalproex Sodium [Depakote] 125 mg PO BID 02/09/20 02/09/20 FLUoxetine HCL [PROzac] 20 mg PO HS 02/09/20 02/09/20 FLUoxetine HCL [PROzac] 40 mg PO DAILY 02/09/20 02/09/20 Fluticasone/Vilanterol [Breo 1 puff INHALATION RT-DAILY 02/09/20 02/09/20 Ellipta 100-25 Mcg Inhaler] Healthshake 1 can PO BID 02/09/20 02/09/20 Ipratropium-Albuterol Nebulize 3 ml INHALATION RT-QID 02/09/20 02/09/20 [Duoneb 0.5 mg-3 mg/3 ml Soln] Lactulose 10 gm PO DAILY 02/09/20 02/09/20 Magnesium Hydroxide [Milk of 2,400 mg PO Q72H PRN 02/09/20 02/09/20 Magnesia] Allergies Allergy/AdvReac Type Severity Reaction Status Date / Time memantine [From Namenda] Allergy Unknown Verified 02/09/20 13:16 Review of Systems ROS Other: All systems not noted in ROS Statement are negative. <Tara Thompson - Last Filed: 02/09/20 13:47> ROS Other: All systems not noted in ROS Statement are negative. <Walt Farah - Last Filed: 02/09/20 15:40> ROS Statement: Those systems with pertinent positive or pertinent negative responses have been documented in the HPI. Past Medical History Past Medical History: CVA/TIA, Dementia, Hypertension Additional Past Medical History / Comment(s): subclavian steal syndrome, new onset afib (11/13/17) History of Any Multi-Drug Resistant Organisms: None Reported Past Surgical History: No Surgical Hx Reported Past Anesthesia/Blood Transfusion Reactions: No Reported Reaction Past Psychological History: No Psychological Hx Reported Smoking Status: Unknown if ever smoked Past Alcohol Use History: None Reported Past Drug Use History: None Reported - Past Family History Mother Family Medical History: Congestive Heart Failure (CHF) Brother(s) Family Medical History: Myocardial Infarction (ID) Additional Family Medical History / Comment(s): ID - 36years old quadruple bypass, other brother age 42. <Tara Thompson - Last Filed: 02/09/20 13:47> General Exam Limitations: altered mental status General appearance: alert, in no apparent distress Head exam: Present: atraumatic, normocephalic, normal inspection Eye exam: Present: normal appearance, PERRL, EOMI. Absent: scleral icterus, conjunctival injection, periorbital swelling ENT exam: Present: normal exam, mucous membranes moist, other ( has contusion over the right eyebrow with laceration involving the right eyebrow ey elid. ) Neck exam: Present: normal inspection. Absent: tenderness, meningismus, lymphadenopathy Respiratory exam: Present: normal lung sounds bilaterally. Absent: respiratory distress, wheezes, rales, rhonchi, stridor Cardiovascular Exam: Present: regular rate, normal rhythm, normal heart sounds. Absent: systolic murmur, diastolic murmur, rubs, gallop, clicks GI/Abdominal exam: Present: soft, normal bowel sounds. Absent: distended, tenderness, guarding, rebound, rigid Extremities exam: Present: normal inspection, full ROM, normal capillary refill. Absent: tenderness, pedal edema, joint swelling, calf tenderness Back exam: Present: normal inspection Neurological exam: Present: alert, oriented X3, CN II-XII intact Psychiatric exam: Present: normal affect, normal mood Skin exam: Present: warm, dry, intact, normal color. Absent: rash <Tara Thompson - Last Filed: 02/09/20 13:47> - General Exam Comments Initial Comments: 79 year female year old female. (Tara Thompson) Course <aTra Thompson - Last Filed: 02/09/20 13:47> Vital Signs 02/09/20 02/09/20 11:07 13:00 Temperature 97.6 F Pulse Rate 63 78 Respiratory 14 18 Rate Blood Pressure 151/59 133/67 O2 Sat by Pulse 93 L 98 Oximetry - Reevaluation(s) Reevaluation #1: 02/09/20 13:27 Patient was becoming combative after trotter catheter placed, and did require 1 mg of Ativan. On reevaluation she is resting in bed. (Tara Thompson) Reevaluation #2: 02/09/20 13:42 Delay in transfer waiting for her trauma surgeon response at [facility]. (Tara Thompson) Procedures - Laceration Laceration #1 Site: face (R eyebrow) Size (cm): 2 Description: linear Depth: simple, single layer Anesthetic Used: lidocaine 1% Anesthesia Technique: local infiltration Amount (mls): 2 Pre-repair: wound explored, irrigated extensively Type of Sutures: nylon Size of Sutures: 5-0 Number of Sutures: 2 Technique: simple, interrupted Patient Tolerated Procedure: well, no complications <Tara Thompson - Last Filed: 02/09/20 13:47> Medical Decision Making - Lab Data Result diagrams: 02/09/20 11:26 02/09/20 11:26 - Radiology Data Radiology results: report reviewed <Tara Thompson - Last Filed: 02/09/20 13:47> - Lab Data Result diagrams: 02/09/20 11:26 02/09/20 11:26 <Walt Farah - Last Filed: 02/09/20 15:40> - Medical Decision Making 79-year-old female from senior care with underlying dementia present emergency department today after fall from standing position striking the right side of her head and causing a laceration above the right eyebrow. Patient is on eliquis. Patient computed tomography scan shows evidence of intracranial hemorrhage. Is also evidence of the left orbital fracture. Patient has normal extraocular eye movement. She does has conjunctival hemorrhage. No hyphema. Patient's case is discussed with Dr. Nichols. Patient started on K Centra and Keppra. She did become agitated when Trotter catheter was attempted to be placed and she did require 1 mg of Ativan. On reevaluation she was comfortable. We attempted to admit the Patient to trauma and neurology as Patient is a DO NOT RESUSCITATE. They recommended transfer to higher level care facility. I did discuss the case with patient's son who does state that he does not want any surgical intervention as Patient is a DO NOT RESUSCITATE but medical management is acceptable. Accepting physician is Dr. CASTILLO at [facility]. (Tara Thompson) 79-year-old female presenting with multiple falls. Patient has underlying dementia, history is somewhat limited.patient has periorbital ecchymosis on the right, no signs of entrapment. She is moving all extremities symmetrically. Head CT shows multiple intraparenchymal hemorrhage as well as Fracture on the right. My initial plan was to admit this patient to this institution for close monitoring given she is a DO NOT RESUSCITATE and family would not like aggressive surgical intervention. I discussed case with Dr. Myriam lara for neurology. She is given K Sentra for reversal. Family agreeable with all medical management. However, trauma service at this institution, Dr. Carl will not accept Intracranial hemorrhage and requested patient be transferred. Patient transferred to [facility]. (Walt Farah) - Lab Data Lab Results 02/09/20 02/09/20 02/09/20 Range/Units 11:26 11:26 11:26 WBC 10.5 (3.8-10.6) k/uL RBC 3.74 L (3.80-5.40) m/uL Hgb 10.3 L (11.4-16.0) gm/dL Hct 34.0 (34.0-46.0) % MCV 90.9 (80.0-100.0) fL MCH 27.6 (25.0-35.0) pg MCHC 30.3 L (31.0-37.0) g/dL RDW 14.6 (11.5-15.5) % Plt Count 429 (150-450) k/uL Neutrophils % 92 % Lymphocytes % 3 % Monocytes % 4 % Eosinophils % 1 % Basophils % 0 % Neutrophils # 9.6 H (1.3-7.7) k/uL Lymphocytes # 0.3 L (1.0-4.8) k/uL Monocytes # 0.4 (0-1.0) k/uL Eosinophils # 0.1 (0-0.7) k/uL Basophils # 0.0 (0-0.2) k/uL Hypochromasia Moderate PT 11.4 (9.0-12.0) sec INR 1.1 (<1.2) APTT 26.4 (22.0-30.0) sec Sodium 140 (137-145) mmol/L Potassium 4.9 (3.5-5.1) mmol/L Chloride 105 (98-107) mmol/L Carbon Dioxide 27 (22-30) mmol/L Anion Gap 8 mmol/L BUN 18 H (7-17) mg/dL Creatinine 0.71 (0.52-1.04) mg/dL Est GFR (CKD-EPI)AfAm >90 (>60 ml/min/1.73 sqM) Est GFR (CKD-EPI)NonAf 81 (>60 ml/min/1.73 sqM) Glucose 127 H (74-99) mg/dL Calcium 9.2 (8.4-10.2) mg/dL Total Bilirubin 0.5 (0.2-1.3) mg/dL AST 31 (14-36) U/L ALT 18 (4-34) U/L Alkaline Phosphatase 78 (38-126) U/L Total Protein 7.1 (6.3-8.2) g/dL Albumin 3.2 L (3.5-5.0) g/dL Urine Color Urine Appearance (Clear) Urine pH (5.0-8.0) Ur Specific Starlight (1.001-1.035) Urine Protein (Negative) Urine Glucose (UA) (Negative) Urine Ketones (Negative) Urine Blood (Negative) Urine Nitrite (Negative) Urine Bilirubin (Negative) Urine Urobilinogen (<2.0) mg/dL Ur Leukocyte Esterase (Negative) Urine RBC (0-5) /hpf Urine WBC (0-5) /hpf Ur Squamous Epith Cells (0-4) /hpf Amorphous Sediment (None) /hpf Hyaline Casts (0-2) /lpf Urine Mucus (None) /hpf 02/09/20 Range/Units 11:26 WBC (3.8-10.6) k/uL RBC (3.80-5.40) m/uL Hgb (11.4-16.0) gm/dL Hct (34.0-46.0) % MCV (80.0-100.0) fL MCH (25.0-35.0) pg MCHC (31.0-37.0) g/dL RDW (11.5-15.5) % Plt Count (150-450) k/uL Neutrophils % % Lymphocytes % % Monocytes % % Eosinophils % % Basophils % % Neutrophils # (1.3-7.7) k/uL Lymphocytes # (1.0-4.8) k/uL Monocytes # (0-1.0) k/uL Eosinophils # (0-0.7) k/uL Basophils # (0-0.2) k/uL Hypochromasia PT (9.0-12.0) sec INR (<1.2) APTT (22.0-30.0) sec Sodium (137-145) mmol/L Potassium (3.5-5.1) mmol/L Chloride (98-107) mmol/L Carbon Dioxide (22-30) mmol/L Anion Gap mmol/L BUN (7-17) mg/dL Creatinine (0.52-1.04) mg/dL Est GFR (CKD-EPI)AfAm (>60 ml/min/1.73 sqM) Est GFR (CKD-EPI)NonAf (>60 ml/min/1.73 sqM) Glucose (74-99) mg/dL Calcium (8.4-10.2) mg/dL Total Bilirubin (0.2-1.3) mg/dL AST (14-36) U/L ALT (4-34) U/L Alkaline Phosphatase (38-126) U/L Total Protein (6.3-8.2) g/dL Albumin (3.5-5.0) g/dL Urine Color Yellow Urine Appearance Cloudy H (Clear) Urine pH 5.5 (5.0-8.0) Ur Specific Starlight 1.023 (1.001-1.035) Urine Protein Trace H (Negative) Urine Glucose (UA) Negative (Negative) Urine Ketones 1+ H (Negative) Urine Blood Negative (Negative) Urine Nitrite Negative (Negative) Urine Bilirubin Negative (Negative) Urine Urobilinogen <2.0 (<2.0) mg/dL Ur Leukocyte Esterase Negative (Negative) Urine RBC <1 (0-5) /hpf Urine WBC 1 (0-5) /hpf Ur Squamous Epith Cells 6 H (0-4) /hpf Amorphous Sediment Rare H (None) /hpf Hyaline Casts 22 H (0-2) /lpf Urine Mucus Few H (None) /hpf 02/09/20 13:32 EKG shows sinus rhythm with premature atrial complexes. Prolonged QT. Ventricular rate of 70 bpm.. Intervals 184 ms. QS duration 72 ms. QT QTc is 454/490 ms. (Tara Thompson) - Radiology Data Chest x-ray shows chronic peripheral changes with new right-sided volume loss, interval progression from 2018 study. While favor worsening chronic change underlying acute infiltrate or else is in the right lung is entirely excluded. No fracture or dislocation evident cervical spine. Multiple hemorrhages as described within the brain. Lateral right orbit fracture right maxillary sinus fractures. (Tara Thompson) Critical Care Time Critical Care Time: Yes Total Critical Care Time: 35 <Walt Farah - Last Filed: 02/09/20 15:40> Disposition Is patient prescribed a controlled substance at d/c from ED?: No Time of Disposition: 13:48 - Out of Hospital Transfer - Req. Specs Out of Hospital Transfer - Requested Specifics: Other Emergency Center ([facility]) <Tara Thompson - Last Filed: 02/09/20 13:47> <Walt Farah - Last Filed: 02/09/20 15:40> Clinical Impression: Intracranial hemorrhage, Right orbit fracture, Dementia, DNR (do not resuscitate) Disposition: DC/TRNS INTERMEDIATE CARE FAC Condition: Good Referrals: Isaiah Gaspar MD [Primary Care Provider] - 1-2 days
[2020-02-09 11:44] LABS: Basophils % (A) 0 %; Eosinophils # (A) 0.1 k/uL (0-0.7); Eosinophils % (A) 1 %; HGB 10.3 gm/dL (11.4-16.0); Hypochromasia Moderate; Lymphocytes # (A) 0.3 k/uL (1.0-4.8); Lymphocytes % (A) 3 %; MCH 27.6 pg (25.0-35.0); MCHC 30.3 g/dL (31.0-37.0); MCV 90.9 fL (80.0-100.0); Monocytes # (A) 0.4 k/uL (0-1.0); Monocytes % (A) 4 %; Neutrophils # (A) 9.6 k/uL (1.3-7.7); Neutrophils % (A) 92 %; Platelet Count 429 k/uL (150-450); RBC 3.74 m/uL (3.80-5.40); RDW 14.6 % (11.5-15.5); WBC 10.5 k/uL (3.8-10.6)
[2020-02-09 11:54] LABS: ALT 18 U/L (4-34); AST 31 U/L (14-36); African American GFR (CKD) >90 (>60 ml/min/1.73 sqM); Albumin 3.2 g/dL (3.5-5.0); Alkaline Phosphatase 78 U/L (38-126); Anion Gap 8 mmol/L; Blood Urea Nitrogen 18 mg/dL (7-17); Calcium 9.2 mg/dL (8.4-10.2); Carbon Dioxide 27 mmol/L (22-30); Chloride 105 mmol/L (98-107); Glucose 127 mg/dL (74-99); INR 1.1 (<1.2); Non-African American GFR(CKD) 81 (>60 ml/min/1.73 sqM); Partial Thromboplastin Time 26.4 sec (22.0-30.0); Potassium 4.9 mmol/L (3.5-5.1); Prothrombin Time 11.4 sec (9.0-12.0); Sodium 140 mmol/L (137-145); Total Bilirubin 0.5 mg/dL (0.2-1.3); Total Protein 7.1 g/dL (6.3-8.2)
--- NOTE | 2020-02-09 12:22 | XR ---
EXAMINATION TYPE: XR chest 2V DATE OF EXAM: 02/09/2020 COMPARISON: Chest x-ray November 17, 2017 HISTORY: Fall injury with pain. TECHNIQUE: Frontal and lateral views of the chest are obtained. FINDINGS: There is increasing reticular interstitial changes greatest in the right lung with right-s ided volume loss now present. Small to tiny right pleural effusion suspected The cardiac silhouette s ize is stable and within normal limits. The osseous structures remain demineralized. IMPRESSION: Chronic parenchymal changes with new right-sided volume loss, interval progression from 2 018 study. While favor worsening chronic change underlying acute infiltrate and/or atelectasis in th e right lung is not entirely excluded.
[2020-02-09] MEDS ORDERED: levETIRAcetam IV 1,000 MG in SALINE 1 100ML.BAG IVPB STA (12:47)
[2020-02-09] MEDS ORDERED: Kcentra PER PHARMACY 1 EACH MISC MISCELLANE PRN (12:47)
--- NOTE | 2020-02-09 12:53 | CT ---
EXAMINATION TYPE: CT brain cspine wo con, CT orbits wo con DATE OF EXAM: 02/09/2020 COMPARISON: none HISTORY: Fall, trauma and pain CT DLP: 946.9 (accession [id number]), included in CT brain/C-sp (accession [id number]) [facility] control for dose reduction was used. TECHNIQUE: CT scan of the head and cervical spine are performed without contrast. FINDINGS: There are multiple parenchymal hemorrhages noted, bifrontal areas of increased attenuatio n are present measuring 2 cm on the right, 2.6 cm on the left. There are additional probable petechia l hemorrhages bilaterally along the parietal lobes, left occipital lobe, frontal lobes, small amount of subarachnoid hemorrhage suspected frontal lobe. Periventricular white matter shows patchy low atte nuation. There is cortical atrophy. Calvarium is intact. Small amount of inflammatory change present in the right mastoid air cells. Cervical spine is visualized in its entirety from C1 through upper thoracic levels and demonstrates satisfactory alignment without evidence of acute fracture or dislocation. Prevertebral soft tissue a ppears within normal limits. Multilevel degenerative disc disease, there is facet arthropathy change. The C1-C2 articulation is unremarkable. , Look multilevel foraminal encroachment. Right upper lobe s hows probable interstitial changes within the left, there may be some mild mixed airspace disease in the upper lobe on the right versus scarring CT orbits: Axial images did not go completely through the maxillary sinuses. There are bilateral air- fluid levels within the maxillary sinuses. Coronal images show irregularity at the posterior margin o f the right maxillary sinus laterally and in the posterior aspect, small comminuted fracture is prese nt inferiorly and laterally on the right. Ostiomeatal units appear patent. The lateral margin of the right orbit shows a small displaced fragment. Soft tissue swelling is noted over the anterior margin of the right orbit. IMPRESSION: 1. There is no acute fracture or dislocation evident in the cervical spine. 2. Multiple hemorrhages as described within the brain. Lateral right orbit fracture, right maxillary sinus fractures. Additional findings above. 3. Tara informed telephonically at 1240hr.
[2020-02-09] MEDS ORDERED: HUMAN PROTHROMBIN COMPLX IV ONE (13:00)
[2020-02-09] MEDS ORDERED: LORazepam 2 MG/ML INJ IV STA (13:06)
[2020-02-09 13:21] VITALS: BP 133/67; PULSE 78; RESP 18
[2020-02-09 13:46] LABS: Amorphous Sediment,Urine Rare /hpf; Appearance,Urine Cloudy (Clear); Bilirubin,Urine Negative (Negative); Blood,Urine Negative (Negative); Color,Urine Yellow; Glucose,Urine (UA) Negative (Negative); Hyaline Casts,Urine 22 /lpf (0-2); Ketones,Urine 1+ (Negative); Leukocyte Esterase,Urine Negative (Negative); Mucus,Urine Few /hpf; Nitrite,Urine Negative (Negative); PH, Urine 5.5 (5.0-8.0); Protein,Urine Trace (Negative); RBC,Urine <1 /hpf (0-5); Specific Gravity,Urine 1.023 (1.001-1.035); Squamous Epithelial Cell,Urine 6 /hpf (0-4); Urobilinogen,Urine <2.0 mg/dL (<2.0); WBC,Urine 1 /hpf (0-5)
== END 2020-02-09 14:34 ==
LOC: EC 11:00
DX: S02.85XA Fracture of orbit, unspecified, initial encounter for closed fracture (principal); S06.300A Unspecified focal traumatic brain injury without loss of consciousness, initial encounter; S01.111A Laceration without foreign body of right eyelid and periocular area, initial encounter; I10 Essential (primary) hypertension; F03.90 Unspecified dementia, unspecified severity, without behavioral disturbance, psychotic disturbance, mood disturbance, and anxiety; Z91.81 History of falling; Z79.01 Long term (current) use of anticoagulants; Z79.899 Other long term (current) drug therapy; Z88.8 Allergy status to other drugs, medicaments and biological substances; Z66 Do not resuscitate; Z86.73 Personal history of transient ischemic attack (TIA), and cerebral infarction without residual deficits; W06.XXXA Fall from bed, initial encounter; Y92.009 Unspecified place in unspecified non-institutional (private) residence as the place of occurrence of the external cause
CPT/HCPCS: 36415; 93005; 80053; 85025; 85610; 85730; 81001; 71046; 72125; 70450; 70480; 99291; 96365; 96367; 96375; 96361 ×2; 12011; 51702; J2060; J2001; C9132; J1953